=== PATIENT | female | born 1985 | race Caucasian/White ===

== ENCOUNTER → 2021-09-03 | Outpatient (CLI) | payer MEDICAID, SELFPAY | END | disposition home or self-care (01) | LOC: SL 21:55 | PROVIDERS: PCP Nurse Practitioner Family; Visit Provider Nurse Practitioner Family | DX: G47.10 Hypersomnia, unspecified (principal) | CPT/HCPCS: 95810 ==

== ENCOUNTER → 2023-03-24 | Outpatient (CLI) | payer MEDICAID, SELFPAY ==
--- NOTE | 2023-03-24 16:08 | RAD_ITS ---
STUDY: X-RAY - LUMBAR SPINE REASON FOR EXAM: Female, 37 years old. LOW BACK PAIN TECHNIQUE: 4 view(s) of the lumbar spine were obtained. COMPARISON: None FINDINGS: Normal lumbar lordosis. There is no substantial scoliosis. There is a normal alignment of the vertebrae. Normal vertebral bodies and endplates. Normal disc space heights. The soft tissue structures are unremarkable. RAD/L/S Spine Min 4 Views IMPRESSION: Normal x-ray examination of the lumbar spine. Electronically Signed: John Canales MD at 18:54 EST ,
[2023-03-24 17:44] LABS: Absolute Lymphocyte Count 2.01 X10^3/uL (0.83-4.51); Absolute Neutrophil Count 5.1 X10^3/uL (2.0-7.7); Basophil% 1.2 % (0-1); Eosinophil# 0.42 X10^3/uL; Eosinophils% 4.9 % (0-5); Hematocrit 41.4 % (37-47); Lymphocyte # 2.01 X10^3/ul (0.83-4.51); Lymphocyte % 23.3 % (19-41); Mean Corp Hgb Conc 31.4 g/dL (32-36); Mean Corpuscular Hgb 28.1 pg (27.0-32.0); Mean Corpuscular Volume 89.4 fL (81-99); Mean Platelet Vol. 11.3 fl (6.2-12.0); Monocyte# 0.93 X10^3/uL; Monocyte% 10.8 % (0-10); NRBC Flagged by Analyzer 0 % (0-5); Neutrophil # 5.14 X10^3/uL (2.7-7.7); Neutrophil % 59.5 % (47-70); Platelet Count 280 K/mm3 (150-450); RBC Distribution Width CV 15.1 % (11.6-14.6); RBC Distribution Width SD 49.3 fl (35.1-43.9); Red Blood Count 4.63 M/mm3 (4.2-5.4); White Blood Count 8.6 K/mm3 (4.4-11.0)
[2023-03-24 18:15] LABS: Hemoglobin A1c 5.2 % (3.8-5.6)
[2023-03-24 18:19] LABS: ALB/GLOB Ratio 0.8 RATIO (0.9-2.4); AST(SGOT) 31 U/L (15-37); Alanine Aminotransfer ALT/SGPT 43 U/L (13-56); Albumin, Serum 3.4 g/dL (3.2-5.0); Alkaline Phosphatase 52 U/L (45-117); Anion Gap 5 (5-15); BUN 7 mg/dL (7-18); BUN/Creat Ratio 8.3 RATIO (10-20); Calcium,Total 9.5 mg/dL (8.5-10.1); Chloride 106 mmol/L (98-107); Cholesterol 226 mg/dL (200); Creatinine, Serum 0.84 mg/dL (0.55-1.02); EST Glomerular Filtration Rate 81 mL/min (>60); Est Glom Filt Rate - Afr Amer 98 mL/min (>60); Globulin 4.4 g/dL (2.2-4.2); Glucose 93 mg/dL (74-106); High Density Lipoprotein 77 mg/dL; Potassium 4.5 mmol/L (3.5-5.1); Protein, Total 7.8 g/dL (6.4-8.2); Sodium Level 139 mmol/L (136-145); Triglycerides 89 mg/dL; Very Low Density Lipoprotein 18 mg/dL (5-40)
[2023-03-24 18:34] LABS: Microalbumin,Random Urine 21.5 mg/L (NO RANGE EST.); Microalbumin:Creatinine Ratio 5.7 mg/g CRE (<30 mg/g CRE)
== END | disposition home or self-care (01) ==
LOC: MTLAB 16:06
PROVIDERS: PCP Family Medicine; Referring Provider Family Medicine; Visit Provider Family Medicine
DX: I10 Essential (primary) hypertension (principal); M54.50 Low back pain, unspecified; F41.8 Other specified anxiety disorders
CPT/HCPCS: 36415; 72110; 80053; 80061; 82043; 82570; 83036; 85025

== ENCOUNTER → 2024-02-02 | Outpatient (CLI) | payer MEDICAID, SELFPAY ==
--- OUTSIDE RECORDS SUMMARY | 2024-02-02 19:51 | XMS RPT_ITS | CCD ---
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 Name Role Phone ELISEO FOX APRN, CNP Primary Care Phys ician Eliseo Lopez CNP Primary Care Provider 1( [phone] TREY HENDERSON DO Primary Care UnavailCLARE Mcallister Attending Felecia vailaCLARE Montemayor Attending Felecia vailable TREY HENDERSON DO Primary Care UnavailTREY Lang DO Primary Care Physician Eliseo Lopez CNP Primary Care Provider ELISEO LOPEZ Primary Care Unavailable ELOISA RODRIGUEZ Attending Unavailable Allergies Allergy Classification Reported Allergen(s) Allergy Type Date of Onset Reaction(s) Facility Doxycycline (1 source) Doxycycline; Translations: [DOXYCYCLINE] Drug Allergy 2 [facility] Latex (1 source) Latex; Translations: [LATEX] Substance Allergy 6 [facility] Penicillins (antibiotic) (1 source) Penicillins; Translations: [PENICILLINS] Drug Allergy 6 [facility] (4 sources) Bee/Wasp/Ant venom Allergy to substance Anaphylaxis (disorder) [facility] (8 sources) Doxycycline; Translations: [doxycycline] Drug Allergy 2 Diarrhea (finding), Stomach ache (finding), GI Upset [facility] (8 sources) Latex Allergy to substance 6 Weal (disorder), Rash [facility] (4 sources) Penicillin; Translations: [penicillin] Drug Allergy Eruption of skin (disorder) [facility] (3 sources) Penicillins Drug Allergy 6 Rash, Hives [facility] (5 sources) Bee Sting; Translations: [BEE STING] Propensity to adverse reactions 6 Anaphylaxis [facility] (5 sources) Wasps; Translations: [WASPS] Propensity to adverse reactions 6 Anaphylaxis [facility] (1 source) Penicillins Drug Allergy 6 [facility] Medications Current Medications Medication Drug Class(es) Dates Sig (Normalized) Sig (Original) acetaminophen 325 mg / oxyCODONE hydrochloride 5 mg oral tablet (2 sources) Opioid Agonist Start: 07-23-2021 take 1 tablet by mouth every six hours as needed for pain acetaminophen-oxy CODONE 325 mg-5 mg oral tablet Dose = 1 tab(s), Oral, q6h, PRN for pain, # 12 tab(s), 0 Refill(s), 144.3 Start Date: 07/23/21 Status: Ordered Start: 07-15-2021 End: 07-20-2021 take 1 tablet by mouth every six hours as needed for pain oxyCODONE-acetaminophen (PERCOCET) 5-325 mg tablet Indications: Anal fistula Take 1 tablet by mouth every 6 hours as needed for pain for up to 5 days. FOR PAIN. 12 tablet 0 07/15/2021 07/20/2021 Active Comment on above: Take 1 tablet by nolberto every 6 hours as needed for pain for up to 5 days. FOR PAIN. ALPRAZolam 0.5 mg oral tablet (3 sources) Benzodiazepine Start: 06-26-19 take 1 tablet by mouth every eight hours as needed ALPRAZolam (XANAX) 0.5 mg tablet Take 0.5 mg by mouth three times daily as needed. 0 06/25/2021 Active Comment on above: Take 0.5 mg by mouth three times daily as needed. ARIPiprazole 5 mg oral tablet (6 sources) Atypical Antipsychotic Start: 05-27-19 End: 02-19-20 take 1 tablet by mouth once daily ARIPiprazole (ABILIFY) 5 mg tablet Take 5 mg by mouth once daily. 0 05/27/2021 Active Start: 05-10-2021 ARIPiprazole 5 mg oral tablet Dose : 5 mg = 1 tab(s), Oral, qDay, # 90 tab(s), 0 Refill(s) Start Date: 05/10/21 Status: Ordered Comment on above: Take 5 mg by mouth o nce daily. atenolol 50 mg oral tablet (8 sources) beta-Adrenergic Divine Start: 02-03-2023 atenolol 50 mg oral tablet Dose : 50 mg = 1 tab(s), Oral, BID, # 60 tab(s), 5 Refill(s), [id number], Supraventricular tachycardia, 172.5, cm, 02/03/23 15:34:00 EDT, Height, kg, 02/03/23 15:34:00 EDT, Dosing Weight Start Date: 02/03/23 Status: Ordered Start: 10-21-2016 End: 03-22-2022 atenolol 50 mg oral tablet D ose : 50 mg = 1 tab(s), Oral, qDay, # 90 tab(s), 2 Refill(s), [id number], Supraventricular tachycardia, 173, cm, 06/25/21 14:05:00 EDT, Height, kg, 06/25/21 14:05:00 EDT, Dosing Weight Start Date: 06/25/21 Stop Date: 03/22/22 Status: Ordered Comment on above: Take 1 tablet by nolberto as needed. brexpiprazole 1 mg oral tablet (2 sources) Atypical Antipsychotic Start: 05-04-2023 Rexulti 1 mg oral tablet Dose : 1 mg = 1 tab(s), Oral, qDay, # 30 tab(s), 0 Refill(s) Start Date: 05/04/23 Status: Ordered Dibucaine (3 sources) Standardized Chemical Allergen Start: 07-23-2021 Dibucaine 1% topical ointment 0 Refill(s), 144.3 Start Date: 07/23/21 Status: Ordered Start: 07-15-2021 End: 07-30-2021 dibucaine (NUPERCAINAL) 1 % ointment Apply to affected area as needed (to external area, as needed) for up to 15 days. 56 g 2 07/15/2021 07/30/2021 Comment on above: Apply to affected ar ea as needed (to external area, as needed) for up to 15 days. escitalopram 10 mg oral tablet (2 sources) Serotonin Reuptake Inhibitor Start: 2023 escitalopram 10 mg oral tablet Dose : 10 mg = 1 tab(s), Oral, qDay, # 30 tab(s), 0 Refill(s) Start Date: 05/04/23 Status: Ordered hydroCHLOROthiazide 12.5 mg oral capsule (1 source) Thiazide Diuretic Start: 2021 hydroCHLOROthiazide 12.5 mg oral capsule Dose : 12.5 mg = 1 cap(s), Oral, qDay, # 30 cap(s), 1 Refill(s), [facility], HTN (hypertension), 173, cm, 07/23/21 13:56:00 EDT, Height Start Date: 07/23/21 Status: Ordered Hydrocortisone / Lidocaine (1 source) Antiarrhythmic, Corticosteroid, Amide Local Anesthetic Start: 2021 End: 2021 apply 1 dose rectal route twice daily hydrocortisone-lidocaine 0.5%-3% rectal cream Dose = 1 karyn, Rectal, BID, X 7 day(s), # 28.3 gram(s), 0 Refill(s), [facility]: [facility], Hemorrhoids without complication, 175, cm, 05/10/21 13:49:00 EST, Height, kg, 05/10/21 13:49:00 EST, Dosing Weight Start Date: 05/10/21 Stop Date: 05/17/21 Status: Ordered sertraline 100 mg oral tablet (6 sources) Serotonin Reuptake Inhibitor Start: 2021 sertraline 100 mg oral tablet Dose : 100 mg = 1 tab(s), Oral, qDay, # 30 tab(s), 5 Refill(s), [facility]: [facility], 173, cm, 07/23/21 13:56:00 EDT, Height Start Date: 08/06/21 Status: Ordered Start: 05-10-2021 sertraline 100 mg oral tablet Dose : 100 mg = 1 tab(s), Oral, qDay, # 90 tab(s), 0 Refill(s) Start Date: 05/10/21 Status: Ordered Start: 06-16-2016 take 1.5 tablets by mouth once daily sertraline (ZOLOFT) 100 mg tablet Indications: Anxiety about health Take 1.5 tablets by mouth once daily. 45 tablet 6 06/16/2016 Active Comment on above: Take 1.5 tablets by mouth once daily. valsartan 160 mg oral tablet (6 sources) Angiotensin 2 Receptor Divine Start: 02-03-2023 Diovan 160 mg oral tablet Dose : 160 mg = 1 tab(s), Oral, qDay, # 30 tab(s), 5 Refill(s), [facility]: [id number], 172.5, cm, 02/03/23 15:34:00 EDT, Height, kg, 02/03/23 15:34:00 EDT, Dosing Weight Start Date: 02/03/23 Status: Ordered Start: 07-02-2021 End: 08-31-2021 Diovan 80 mg oral tablet Dos e : 80 mg = 1 tab(s), Oral, qDay, # 30 tab(s), 1 Refill(s), [facility]: [facility], HTN (hypertension), 173, cm, 07/02/21 11:06:00 EDT, Height, kg, 07/02/21 11:06:00 EDT, Dosing Weight Start Date: 07/02/21 Stop Date: 08/31/21 Status: Ordered Comment on above: Take 80 mg by mouth once daily. Completed/Discontinued Medications Medication Drug Class(es) Dates Sig (Normalized) Sig (Original) chlorhexidine gluconate 20 mg/ml topical solution (1 source) Start: 07-02-2021 End: 07-12-2021 apply 1 dose topically once daily chlorhexidine 2% topical liquid Dose = 1 karyn, Topical, Daily, # 120 mL, 1 Refill(s), Pharmacy: [facility], Anal fissure, 173, cm, 07/02/21 11:06:00 EDT, Height, kg, 07/02/21 11:06:00 EDT, Dosing Weight Start Date: 07/02/21 Stop Date: 07/12/21 Status: Ordered [id number] 0.3 ml EPINEPHrine 1 mg/ml auto-injector (6 sources) alpha-Adrenergic Agonist, beta-Adrenergic Agonist, Catecholamine Start: 01-14-2022 EpiPen 2-[place] 0.3 mg injectable kit Dose : 0.3 mg =, Intramuscular, AsDirected, PRN Allergic reaction, # 1 kit(s), 1 Refill(s), Pharmacy: [email or web address] #[id number], 173, cm, 01/14/22 9:45:00 EDT, Height Start Date: 01/14/22 Status: Ordered Start: 10-21-2016 EPINEPHrine (E PIPEN) 0.3 mg/0.3 mL auto-injector Inject 0.3 mL intramuscularly as directed. 1 Each 3 10/21/2016 Active Comment on above: Inject 0.3 mL intram uscularly as directed. Problems Active Problems Problem Classification Problem Date Documented Date Episodic/Chronic Alcohol-related disorders (2 sources) Alcohol abuse 12-23-2022 Chronic Anal and rectal conditions (2 sources) Anal fistula; Translations: [Anal fistula] Episodic Anxiety disorders (12 sources) Anxiety; Translations: [Anxiety disorder, unspecified] Onset: 03-26-2016 08-07-2020 Chronic Cardiac dysrhythmias (8 sources) Supraventricular tachycardia; Translations: [Supraventricular tachycardia] Onset: 05-15-2016 01-07-2019 Chronic Congestive heart failure; nonhypertensive (2 sources) Diastolic dysfunction 12-23-2022 Chronic Comment on above: (09/10/2021 21:53 ED T MRI Cardiac Morphology & Func W+W/O Cont) Impression: 1. Normal biventricular systolic function. LVEF calculated at 57%. RVEF calculated at 61%. Both ventricles are dilated/increased (but normal when indexed to BSA). 2. No edema or scar seen. 3. No significant valve disease. 4. Biatrial dilation (normal PA size). Echo Summary: 2021 1. Left ventricle: The cavity size is normal. Wall thickness is mildly increased. Systolic function is mildly reduced. The estimated ejection fraction is 45%. Regional wall motion abnormalities cannot be excluded. Grade I diastolic dysfunction. 2. Ventricular septum: Thickness is mildly increased. 3. Left atrium: The atrium is mildly dilated. 4. Right ventricle: The cavity size is mildly increased. The RV systolic pressure by Doppler is 21 mm Hg. 5. Right atrium: The atrium is moderately dilated. Essential hypertension (7 sources) Hypertensive disorder; Translations: [Essential (primary) hypertension] Onset: 07-05-2021 07-05-2021 Chronic Menstrual disorders (4 sources) Disorder of menstruation 12-04-2020 Chronic Mood disorders (4 sources) Depressive disorder; Translations: [Depression] Onset: 07-05-2021 07-05-2021 Chronic Nonmalignant breast conditions (4 sources) Fibrocystic disease of breast 08-07-2020 Chronic Other nutritional; endocrine; and metabolic disorders (4 sources) Morbid obesity; Translations: [Morbid (severe) obesity due to excess calories] Onset: 07-05-2021 07-05-2021 Chronic Other screening for suspected conditions (not mental disorders or infectious disease) (2 sources) Echocardiogram abnormal 08-09-2021 Episodic Comment on above: Echo Summary: 2021 1. Left ventricle: The cavity size is normal. Wall thickness is mildly increased. Systolic function is mildly reduced. The estimated ejection fraction is 45%. Regional wall motion abnormalities cannot be excluded. Grade I diastolic dysfunction. 2. Ventricular septum: Thickness is mildly increased. 3. Left atrium: The atrium is mildly dilated. 4. Right ventricle: The cavity size is mildly increased. The RV systolic pressure by Doppler is 21 mm Hg. 5. Right atrium: The atrium is moderately dilated. Echo Summary: 2018 1. Left ventricle: The cavity size is normal. Wall thickness is normal. Systolic function is normal. The estimated ejection fraction is 55-60%. Although no diagnostic regional wall motion abnormality is identified, this possibility cannot be completely excluded on the basis of this study. Normal diastolic function. 2. Right ventricle: The RV systolic pressure by Doppler is 27 mm Hg. 3. Right atrium: The estimated right atrial pressure is 10 mm Hg. Kiesha-; endo-; and myocarditis; cardiomyopathy (except that caused by tuberculosis or sexually transmitted disease) (2 sources) Cardiomyopathy 04-25-2022 Chronic Comment on above: 08/06/2021 Echo Summ laura: 1. Left ventricle: The cavity size is normal. Wall thickness is mildly increased. Systolic function is mildly reduced. The estimated ejection fraction is 45%. Regional wall motion abnormalities cannot be excluded. Grade I diastolic dysfunction. 2. Ventricular septum: Thickness is mildly increased. 3. Left atrium: The atrium is mildly dilated. 4. Right ventricle: The cavity size is mildly increased. The RV systolic pressure by Doppler is 21 mm Hg. 5. Right atrium: The atrium is moderately dilated. Poisoning by nonmedicinal substances (2 sources) Bee sting-induced anaphylaxis 01-14-2022 Episodic Residual codes; unclassified (3 sources) Obstructive sleep apnea syndrome; Translations: [Obstructive sleep apnea (adult) (pediatric)] 04-17-2022 Chronic Comment on above: 04/11/2022 Sleep Marshal dy: IMPRESSION: 1. Moderate respiratory events are mainly REM related without supine REM. 2. All stages of sleep were recorded with a decrease in SWS and REM. 3. Snoring was moderate to loud causing some arousals. 4. PLMS with an arousal index of 1.2. 5. Sats below 90% for part of the night and a low of 83% with REM events. Residual codes; unclassified (1 source) Obstructive sleep apnea (adult) (pediatric); Translations: [YANELI (obstructive sleep apnea)] Onset: 09-01-2023 Chronic Residual codes; unclassified (4 sources) Family history of breast cancer 11-15-2019 Episodic Residual codes; unclassified (4 sources) Increased body mass index 08-07-2020 Episodic Spondylosis; intervertebral disc disorders; other back problems (2 sources) Backache 02-03-2023 Episodic Unclassified (20 sources) Patient encounter status 11-15-2019 Past or Other Problems Problem Classification Problem Date Documented Da te Episodic/Chronic Cancer of cervix (4 sources) History of malignant neoplasm of cervix; Translations: [Personal history of malignant neoplasm of cervix uteri] Onset: 07-05-2021 07-05-2021 Episodic Other skin disorders (4 sources) Hidradenitis suppurativa; Translations: [Hidradenitis suppurativa] Onset: 07-05-2021 07-05-2021 Episodic Results Test Name Value Interpretation Reference Range Facil ity ANES POSTPROC EVALon 022 ANES POSTPROC EVAL HNO ID: [id number] Author: Joaquin Degroot MD Service: Anesthesiology Author Type: Physician Type: Anesthesia Postprocedure Evaluation Filed: 07/15/2021 3:10 PM Note Text: POST ANESTHESIA EVALUATION NOTE : 1985 Procedure Summary Date: 07/15/21 Room / Location: NE OR05 / NE OR Anesthesia Start: 1334 Anesthesia Stop: 1416 Procedures: ANAL FISTULECTOMY EXTRASPHINCTERIC W/ SETON DRAIN (N/A Anus) EXAM UNDER ANESTHESIA RECTAL (N/A Anus) Diagnosis: Anal fistula Surgeons: Eliseo Morales MD Responsible Provider: Joaquin Degroot MD Anesthesia Type: MAC ASA Status: 3 Anesthesia Type: MAC Last Vitals Vitals Value Taken Time BP 149/68 07/15/21 1500 Temp 36 ?C (96.8 ?F) 07/15/21 1415 Pulse 83 07/15/21 1500 Resp 16 07/15/21 1500 SpO2 98 % 07/15/21 1500 Post Anesthesia Patient Status Patient Evaluation: PACU. PACU/ICU Patient Condition: stable. Anticipated Disposition: phase 2 then home. Neurological Status: aware and responsive. Pulmonary Status: breathing comfortably on room air Airway Control: returned to baseline unsupported. Cardiovascular Status: stable. Pain Management: clinically adequate - multimodal analgesia pain management approach Postoperative Hydration: acceptable. Intraoperative Events: no significant anesthesia events Recommendation: continue current plan of care. Anesthesia Observations No Documentation SIGNATURE: Joaquin Degroot MD PATIENT NAME: Jaime Desai DATE: July 15, 2021 TIME: 3:09 PM CSN: [id number] [facility] ANES PRE-OPon 07-15-2021 ANES PRE-OP HNO ID: [id number] Author: Joaquin Degroot MD Service: Anesthesiology Author Type: Physician Type: Anesthesia Preprocedure Evaluation Filed: 07/15/2021 1:02 PM Note Text: ANESTHESIOLOGY DAY OF SURGERY NOTE : 1985 Procedure Information Date/Time: 07/15/21 1318 Procedures: ANAL FISTULECTOMY EXTRASPHINCTERIC W/ SETON DRAIN (N/A ) EXAM UNDER ANESTHESIA RECTAL (N/A Anus) Location: [place] [address] / [place] OR Surgeons: Eliseo Morales MD Estimated body mass index is 48.2 kg/m? as calculated from the following: Height as of 07/05/21: 172.7 cm (5' 8 ). Weight as of 07/05/21: 143.8 kg (317 lb). Most recent hematocrit and potassium results: Hematocrit 39.1 01/10/2014 Potassium 4.0 01/10/2014 Relevant Problems CARDIO (+) Hypertension (+) Supraventricular tachycardia (HCC) NEURO-PSYCH (+) History of malignant neoplasm of cervix I - PHYSICAL EVALUATION AIRWAY Patient intubated: No. Tracheostomy tube not present Mallampati: II. TM distance: >3 FB. Neck ROM: full ROM without neurological symptoms. Mouth opening: adequate. Short neck: no. Thick neck: no DENTAL Normal dental observations. Dental findings: teeth intact. Additional exam findings: no II - ANESTHESIA PLAN ASA Score: 3 Anesthetic Plan: MAC NPO Status: adequate Monitoring plan: Standard ASA. Postoperative analgesic plan: parenteral or oral opioids and multimodal analgesia. Informed Consent Anesthetic risks, benefits, alternatives, personnel and consent discussed: yes. Patient / Responsible Constitution Party agrees to proceed: yes Patient / Surrogate agrees to blood products: blood products not planned DNR status not reviewed with patient and/or family prior to surgery. Significant changes in the patient condition since the History and Physical, not otherwise documented in primary service progress note: no. Potential Anesthesia issues that may suggest increased risk of complications or contraindication to planned procedure: none. Vitals Value Taken Time BP 172/92 07/15/21 1208 Pulse Resp 16 07/15/21 1208 Temp 36.8 ?C (98.2 ?F) 07/15/21 1208 SpO2 99 % 07/15/21 1208 Facility-Administered Medications as of 07/15/2021 Medication Dose Route Frequency - lactated ringers iv infusion 5-30 mL/hr INTRAVENOUS CONTINUOUS - clindamycin iv piggyback 900 mg in D5W 50 mL (CLEOCIN) 900 mg INTRAVENOUS Pre-Op Once - [COMPLETED] acetaminophen 650 mg tab(s) (TYLENOL) 650 mg ORAL Pre-Op Once - [COMPLETED] promethazine 12.5 mg tab(s) (PHENERGAN) 12.5 mg ORAL Pre-Op Once - scopolamine 1 mg over 3 days 1 Patch (TRANSDERM-SCOP) 1 Patch TRANSDERMAL ONCE Outpatient Medications as of 07/15/2021 Medication Sig - ARIPiprazole (ABILIFY) 5 mg tablet Take 5 mg by mouth once daily. - atenolol (TENORMIN) 50 mg tablet Take 1 tablet by mouth as needed. - sertraline (ZOLOFT) 100 mg tablet Take 1.5 tablets by mouth once daily. - EPINEPHrine (EPIPEN) 0.3 mg/0.3 mL auto-injector Inject 0.3 mL intramuscularly as directed. I have interviewed and examined the patient. I have reviewed the medical record and/or the pre-anesthesia evaluation, pertinent labs, and test results. This contains updated information obtained within 48 hours of Surgery/Procedure. SIGNATURE: Joaquin Degroot MD PATIENT NAME: Jaime Desai DATE: July 15, 2021 TIME: 1:01 PM CSN: [id number] [facility] BRIEF OP NOTon 07-15-2021 BRIEF OP NOT HNO ID: [id number] Author: Eliseo Morales MD Service: General Surgery Author Type: Physician Type: Brief Op Note Filed: 07/15/2021 2:14 PM Note Text: BRIEF OPERATIVE NOTATION FOR SURGICAL PROCEDURE. Jaime Desai 1985 [id number] female LOG ID: [id number] Surgery/Procedure Date: 07/15/2021 Incision/Procedure Start Time: 1:51 PM Incision Close/Procedure End Time: 2:04 PM Surgeon(s)/Proceduralis t(s) and Bulk Sealer Operator(s): Surgeon(s) and Role: * Eliseo Morales MD - Primary Registered Nurse Highway Technician: Agnieszka Miller RN REFERRING PHYSICIAN: Outpatient DEPT: W[facility] PROVIDER: Cj POS: [id number] ANESTHESIA: Monitored Anesthesia Care ASA CLASS: 3 - Severe DIAGNOSIS: posterior anal fistula PROCEDURE: Examination Under Anesthesia, Anal Fistula - [id number] IVF: 600 EBL: 25 Specimens: fistula tract ADDITIONAL DIAGNOSES: FINDINGS: posterior fistula COMPLICATIONS: None PMHx - PAST MEDICAL HISTORY Diagnosis Date - Anxiety - Atopic dermatitis - Depression - Generalized anxiety disorder with panic attacks - Hemorrhoids - Hidradenitis suppurativa - History of malignant neoplasm of cervix 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 - [id number] Eliseo Morales MD [facility] HISTORY PHYSICALon HISTORY PHYSICAL HNO ID: [id number] Author: Eliseo Morales MD Service: General Surgery Author Type: Physician Type: HANDP Filed: 07/15/2021 1:10 PM Note Text: HISTORY AND PHYSICAL ? Jaime Ordonezigler 1985 ? ? REFERRING PHYSICIAN: Self ? CHIEF COMPLAINT: Consult (hemorrhoid) ? HPI: The patient is a 35 year old female with a complaint of a painful area in her perianal area. ? The patient has a history of hidradenitis under her breasts and axilla. Initially she wondered if this was perianal hidradenitis. She does however note that the area tends to fill up and occasionally drain with blood and pus and she notes that it is painful when it is full. She notes this started approximately 2 months previously. Between times when she notes pus draining from the area she will otherwise notes some clear yellow to greenish liquid draining. ? The patient was referred to dermatology. Dermatology prescribed doxycycline but told her not to take that medication until she was evaluated by me.. ? The patient is being seen by me at the request of JARRED HermanP, LINSEED CAKE TRIMMER for my opinion and advice regarding perianal drainage. ? She was seen in the office in May but wanted to come back just that she has some degrees of anxiety about the planned procedure and just to rediscuss the findings the planned procedure and the expected postoperative course. ? PAST MEDICAL HISTORY PAST MEDICAL HISTORY Diagnosis Date - Anxiety ? - Atopic dermatitis ? - Depression ? - Generalized anxiety disorder ? ? with panic attacks - Hemorrhoids ? - Hidradenitis suppurativa ? - History of malignant neoplasm of cervix ? ? 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 - Low back pain ? - Morbid obesity (HCC) ? ? BMI 44 - Narcotic drug use ? - Paresthesia ? - Paroxysmal supraventricular tachycardia (HCC) ? ? Episodes typically every 3 mos; face in cold water - Supraventricular tachycardia (HCC) ? - Tobacco dependence syndrome ? ? ? PAST SURGICAL HISTORY PAST SURGICAL HISTORY Procedure Laterality Date - SECTION HX ? ? ? x2 - CONIZATION OF CERVIX, LEEP ? ? ? x2; 2009; 11/2011; Dr. Alonso - TUBAL LIGATION HX ? 2012 ? ? CURRENT MEDICATIONS Current Outpatient Medications Medication Sig - ALPRAZolam (XANAX) 0.5 mg tablet Take 0.5 mg by mouth three times daily as needed. - ARIPiprazole (ABILIFY) 5 mg tablet Take 5 mg by mouth once daily. - EPINEPHrine (EPIPEN) 0.3 mg/0.3 mL auto-injector Inject 0.3 mL intramuscularly as directed. - atenolol (TENORMIN) 50 mg tablet Take 1 tablet by mouth as needed. - sertraline (ZOLOFT) 100 mg tablet Take 1.5 tablets by mouth once daily. ? No current facility-administered medications for this visit. ? ? ALLERGIES: Bee Sting, Wasps, Doxycycline, Latex, and Penicillins ? PERSONAL HISTORY: SOCIAL HISTORY Social History ? Tobacco Use - Smoking status: Former Smoker ? ? Types: Cigarettes ? ? Quit date: 07/18/2016 ? ? Years since quittin.9 - Smokeless tobacco: Never Used - Tobacco comment: Quit 07/2016 Vaping Use - Vaping Use: current everyday user Substance Use Topics - Alcohol use: Yes ? ? Comment: occasionally - Drug use: No ? FAMILY HISTORY: FAMILY HISTORY FAMILY HISTORY Problem Relation Age of Onset - Breast Cancer Maternal Grandmother ? - Ovarian cancer Maternal Grandmother ? - other (Heart Disease) Maternal Grandmother ? ? ? REVIEW OF SYMPTOMS: The review of systems data was entered by the nurse and reviewed by me ? There are no exam notes on file for this visit. PHYSICAL EXAMINATION: ? General: The patient is 35 year old female, well nourished, well hydrated in no acute distress. The patient is oriented to time, place, and person. ? VITALS: Blood pressure 130/92, pulse 75, temperature 36.8 ?C (98.2 ?F), height 172.7 cm (5' 8 ), weight (!) 142.1 kg (313 lb 3.2 oz), last menstrual period 09/07/2016, SpO2 97 %. ? HEENT: Normal cephalic, ataumatic, pupils are equally round, sclera are anicteric, mucous membranes are moist, oropharynx is clear. Neck has no masses, asymmetry or lymphadenopathy. Thyroid is unremarkable. ? Respiratory: Clear to auscultation and percussion. Normal respiratory excursion and pattern. ? Cardiac: Examination is regular rate and rhythm. ? Abdominal exam: Soft, nontender, with no palpable masses. No hepatosplenomegaly. No palpable hernias. ? Rectal exam: Posterior midline-an external sinus consistent with a posterior midline anal fistula along with a chronically inflamed tag just proximal to the sinus. Digital rectal exam reveals no hemorrhoids or other abnormalities there is what it feels to be a tract in the posterior midline consistent with fistula. She has no active perianal hidradenitis. ? Extremities: no clubbing, cyanosis or edema. No adenopathy. ? Other: ? ? LABORATORY VALUES: As Noted ? RADIOLOGIC STUDIES: As (more content not included)... [facility] OPERATIVE NOon 07-15-2021 OPERATIVE NO HNO ID: [id number] Author: Eliseo Morales MD Service: General Surgery Author Type: Physician Type: Operative Report Filed: 07/16/2021 6:26 AM Note Text: [facility] - Operative Report JAIME DESAI : 1985 AGE: 36. SEX: F PATIENT TYPE: A HOSP [facility]: [facility] LOCATION: [facility] ATTENDING PHYSICIAN: Eliseo Morales M.D. CSN NUMBER: [id number] DATE OF SURGERY/PROCEDURE: 07/15/2021 INCISION/PROCEDURE START TIME: Start time was 1:51 p.m. INCISION CLOSE/PROCEDURE END TIME: End time is 2:04 p.m. PREOPERATIVE DIAGNOSIS: Posterior anal fistula. POSTOPERATIVE DIAGNOSIS: Posterior anal fistula. SURGEON: Eliseo Morales M.D. JOURNEY LINEMAN: SURAJ Luu. SURGERY/PROCEDURE: Under anesthesia and anal fistulotomy. ANESTHESIA: Local MAC. LOG ID NUMBER: [id number]. ANESTHESIOLOGIST: Dr. Joaquin Degroot. ASA: 3. INTRAVENOUS FLUIDS: 600 mL. ESTIMATED BLOOD LOSS: 25 mL. URINE OUTPUT: No catheter. FINDINGS: As described above. SPECIMENS: Fistula tract. DRAINS: None. COMPLICATIONS: None. DISPOSITION: Patient taken to PACU in stable condition. DESCRIPTION OF PROCEDURE: Sign-in was performed, verifying the patient, site, procedure, position, critical nursing information, VTE, and antibiotic prophylaxis. Patient received clindamycin and sequential pressure devices were placed. Patient had extreme fear of general anesthesia, so we elected the procedure in modified lithotomy sedation and a local anesthetic block. So, the patient was positioned in modified lithotomy. The perineal area was prepped and draped in the fashion. Time- out was performed verifying patient, site, procedure, position. Once the patient was then given a decent bolus of sedation, a perianal block was performed using 1% lidocaine and 0.5% Marcaine circumferentially around the anus and along the posterior aspect of the fistula tract. Bidigital exam revealed internal hemorrhoids without other additional abnormalities. Anoscopy demonstrated what was felt to be the internal fistula orifice to be relatively superficial. The patient had an anal tag in the posterior midline following Goodsall's rule. Hydrogen peroxide was injected in the external opening, which flushed easily into the internal inguinal opening at the dentate line. A probe was placed. The fistula tract opened with minimal sphincter superficial to it. The tag was excised with electrocautery. Hemostasis was obtained with electrocautery. Following this, more of the local anesthetic mixture was injected in the perianal fistula tract. Dibucaine- impregnated Gelfoam was placed in the anal canal. The area was cleaned up. A dressing of 4 x 4's, ABD and ice peripad were placed and held in place with mesh pants. The patient was awakened, taken out of lithotomy and brought to recovery room in stable condition. Eliseo Morales M.D. RG:[id number] /[id number] [facility] SURGICAL PATHOLOGYon 022 CASE REPORT [facility] Comment on above: Order Comment: Speci men Type: TISSUE SPECIMEN Ordering Facility: [facility] Address: [address] [place] [id number] Result Comment: Surg [facility] Pathology Report Case: [id number] Authorizing Provider: Eliseo Morales MD Collected: 07/15/2021 01:59 PM Ordering Location: [facility] Surgery Received: 07/15/2021 03:53 PM Pathologist: Karen Reyes MD Specimen: FISTULA, Fistual Tract Performed By: #### S #### [facility] CLIA [id number] [address] [place] [address] FINAL DIAGNOSIS [facility] Comment on above: Order Comment: Speci men Type: TISSUE SPECIMEN Ordering Facility: [facility] Address: [address] [place] [address] Result Comment: A. A nal region, anal fistulotomy: - Squamous mucosa and submucosa with organizing inflammation consistent with the clinical history of fistula tract. AEB/mm 07/18/2021 Performed By: #### S #### [facility] CLIA [id number] [address] [place] [address] FINAL PERFORMING LAB [facility] Comment on above: Order Comment: Speci men Type: TISSUE SPECIMEN Ordering Facility: [facility] Address: [address] [place] [address] Result Comment: Diag nostic interpretation performed at [facility], [address] [place] [address] CLIA# [id number] Education Research Analyst: Kike Amin M.D. Performed By: #### S #### [facility] CLIA [id number] [address] [place] [address] GROSS DESCRIPTION A. FISTULA. [facility] Comment on above: Order Comment: Speci men Type: TISSUE SPECIMEN Ordering Facility: [facility] Address: [address] [place] [address] Result Comment: Rece ived in formalin labeled as fistula tract is a segment of kaur-lester mucosal covered rubbery tissue fragments measuring 1.7 x 1.1 x 0.8 cm. The specimen is serially sectioned and is entirely submitted in A1. TN/kr 07/16/2021 Gross examination performed at [facility], [address] [place] [address] CLIA# [id number] Performed By: #### S #### [facility] CLIA [id number] [address] [place], [place] [id number] [place] Vital Signs Date Time Vital Sign Value Performing Clinician Helen edmond 07-30-2021 16:38-0400 Body height 172.7 cm Eliseo Morales MD Work Phone: [facility] 07-30-2021 16:38-0400 Body temperature 97.7 [degF] Eliseo Morales MD Work Phone: [facility] 07-30-2021 16:38-0400 Body weight 145.15 kg Eliseo Morales MD Work Phone: [facility] 07-30-2021 16:38-0400 Diastolic blood pressure 90 mm[Hg] Eliseo Morales MD Work Phone: [facility] 07-30-2021 16:38-0400 Heart rate 82 /min Eliseo Morales MD Work Phone: [facility] 07-30-2021 16:38-0400 SaO2% (BldA) [Mass fraction] 98 % Eliseo Morales MD Work Phone: [facility] 07-30-2021 16:38-0400 Systolic blood pressure 152 mm[Hg] Eliseo Morales MD Work Phone: [facility] 07-15-2021 15:00-0400 Diastolic blood pressure 68 mm[Hg] Eliseo Morales MD Work Phone: [facility] 07-15-2021 15:00-0400 Heart rate 83 /min Eliseo Morales MD Work Phone: [facility] 07-15-2021 15:00-0400 Respiratory rate 16 /min Eliseo Morales MD Work Phone: [facility] 07-15-2021 15:00-0400 SaO2% (BldA) [Mass fraction] 98 % Eliseo Morales MD Work Phone: [facility] 07-15-2021 15:00-0400 Systolic blood pressure 149 mm[Hg] Eliseo Morales MD Work Phone: [facility] 07-15-2021 14:15-0400 Body temperature 96.8 [degF] Eliseo Morales MD Work Phone: [facility] Encounters Encounter Date Encounter Type Care Provider Facility Start: 09-01-2023 End: 09-02-2023 ambulatory Eloisa Rodriguez ACCOUNTS RECEIVABLE ANALYST.LINSEED CAKE TRIMMER Work Phone: Neurology Comment on above: YANELI (obstructive sle ep apnea) (Primary Dx) Start: 09-01-2023 End: 09-01-2023 Telemedicine consultation with patient Eloisa Rodriguez ACCOUNTS RECEIVABLE ANALYST.LINSEED CAKE TRIMMER Work Phone: Neurology Start: 05-11-2023 End: 05-11-2023 Patient encounter procedure CLARE HENRY ACCOUNTS RECEIVABLE ANALYST-CNM [facility] Start: 05-07-2023 ambulatory CLARE RIVERA PSOOdalys ACCOUNTS RECEIVABLE ANALYST-CNM Facility:B Start: 08-06-2021 End: 08-06-2021 Patient encounter procedure ELISEO LOPEZ ACCOUNTS RECEIVABLE ANALYST - LINSEED CAKE TRIMMER [facility] Start: 07-30-2021 End: 07-30-2021 Patient encounter procedure Eliseo Morales MD Work Phone: General Surgery Comment on above: Anal fistula (Primar y Dx) Start: 07-15-2021 End: 07-15-2021 Subsequent hospital visit by physician Eliseo Morales MD Work Phone: [facility] Comment on above: Anal fistula [K60.3] Start: 05-30-2021 Telephone encounter Eliseo Morales MD Work Phone: General Surgery Comment on above: 07-15-2021 EUA Fistu la Start: 05-13-2021 End: 05-13-2021 Patient encounter procedure ELISEO LOPEZ ACCOUNTS RECEIVABLE ANALYST - LINSEED CAKE TRIMMER [facility] Procedures Date Procedure Procedure Detail Performing Clinician Start: 07-15-2021 Anal fistula CLARE CHANG ACCOUNTS RECEIVABLE ANALYST-CNM Start: 04-13-2018 Breast ultrasound im aging system (physical object) ELISEO MAUROPKINS ACCOUNTS RECEIVABLE ANALYST - LINSEED CAKE TRIMMER Plan of Treatment Date Care Activity Detail Author Start: 01-29-2027 Urine microalbumin profile DTaP,Tdap,Td Vaccine (2 - Td or Tdap) [facility] Start: 12-13-2023 Influenza vaccination Influenz a Vaccine (Season Ended) [facility] Start: 12-12-2022 Covid-19 Vaccine ( season) Covid-19 Vaccine ( season) [facility] Start: 12-12-2021 Influenza vaccination INFLUENZ A (Season Ended) [facility] Start: 10-11-2020 PAP TESTING PAP TESTING [facility] Start: 10-11-2020 Screening for malign ant neoplasm of cervix Pap Testing [facility] Start: 11-12-2017 ANNUAL PCP TEAM QA ARCHITECT VIRGILIO DISEASE VISIT ANNUAL PCP TEAM CHRONIC DISEASE VISIT [facility] Start: 2016 HPV TESTING HPV TESTING [facility] Start: 2016 Screening for malign ant neoplasm of cervix HPV Testing [facility] Start: 2005 Hepatitis B Vaccine (1 of 3 - 19+ 3-dose series) Hepatitis B Vaccine (1 of 3 - 19+ 3-dose series) [facility] Start: 2005 Urine microalbumin profile DTAP,TDAP,TD (1 - Tdap) [facility] Start: 2004 Annual PCP Team State Editor virgilio Disease Visit Annual PCP Team Chronic Disease Visit [facility] Start: 2004 BP CONTROLLED (<130/80) BP CON TROLLED (<130/80) [facility] Start: 2004 HEPATITIS C SCREENING HEPATITIS C [facility] Start: 2004 Hepatitis C screening Hepatitis C [facility] Start: 2004 HIV SCREENING HIV SCREENING [facility] Start: 2004 HIV screening HIV Screening [facility] Start: 1991 COVID-19 VACCINE (1) COVID-19 VACCIN E (1) [facility] SURGICAL PATHOLOGY [facility] Work Phone: Comment on above: Release Upon Orderin g for 1 Occurrences starting 07/15/2021 ME OR Immunizations Immunization Date Immunization Notes Care Provider Kleber whyte 03-26-2016 influenza virus vacc ine, unspecified formulation Eloisa Rodriguez APRN.CNP Work Phone: [facility] Payers Date Payer Category Payer Medicaid [employer] [id number] 2022-Present [phone] [address] [place] [address] Medicaid [id number] 2022 Unknown [id number] 2015 Medicaid [facility] AID [employer] [id number] 2015-Present [phone] [address] [place] [address] Medicaid [id number] 1985 Unknown [id number] 1985 Unknown [id number] Social History Date Type Detail Facility Start: 10-21-2016 End: 10-25-2018 Ex-smoker (finding) [facility] Comment on above: No smoke exposure Sex Assigned At [facility] End: 07-18-2016 History of tobacco use Current smoker [facility] End: 07-18-2016 History of tobacco use Cigarette Smoker [facility] Start: 09-12-2016 End: 10-21-2016 Tobacco use and exposure Smokeless tobacco non-user [facility] Start: 05-30-2021 End: 07-30-2021 Alcohol intake Current drinker of alcohol (finding) [facility] Start: 03-26-2016 History SDOH Alcohol Comment occasionally [facility] Start: 10-21-2016 Tobacco Comment Quit 07/2016 [facility] Start: 1985 Sex Assigned At Not on file [facility] Start: 07-05-2021 End: 07-30-2021 Exposure to SARS-CoV-2 (event) Not sure [facility] Start: 07-05-2021 History SDOH Alcohol Comment a few glasses of wine a week [facility] Start: 12-23-2022 Tobacco smoking status [facility] tobacco [facility] Comment on above: No smoke exposure Start: 07-30-2021 End: 09-01-2023 History of Social function [facility] Start: 07-30-2021 End: 09-01-2023 Tobacco use panel [facility] National Score (1-100), lower number is lower risk 36 [facility] Clinical Notes 02-06-2021 to 09-01-2023 Eloisa Rodriguez APRN.CNP - 09/01/2023 1:00 PM Wing Morales MD - 07/30/2021 6:46 PM EDTDischarge Instr - Other OrdersBrief Op Note - Eliseo Morales MD - 07/15/2021 2:08 PM EDTLaboratory Note Date & Type Note Facility 09-01-2023 Note HNO ID: [id number] Author: ELOISA RODRIGUEZ APRN.CNP Service: ? Author Type: Nurse Practitioner Type: Progress Notes Filed: 09/01/2023 13:21 Note Text: [facility] Sleep Disorders Elizabeth New Patient Evaluation PATIENT NAME: Jaime Desai DATE OF SERVICE: September 01, 2023 No show Reschedule as new patient. Eloisa Rodriguez APRN.CNP [facility] 09-01-2023 History of Presen t illness Narrative [facility] Sleep Disorders Elizabeth New Patient Evaluation PATIENT NAME: Jaime Mckeoner DATE OF SERVICE: September 01, 2023 No show Reschedule as new patient. Eloisa Rodriguez APRN.CNP documented in this encounter [facility] 07-30-2021 History of Presen t illness Narrative FOLLOW UP VISIT - POST OP NAME: Jaime Becerra Gricelda [facility] NO.: [id number] DATE OF SERVICE: 07/30/2021 : 1985 REFERRING PHYSICIAN: AVERY Herman, JESSE Jaime is a patient I am following for posterior midline superficial fistula. The patient is a 35 year old female with a complaint of a painful area in her perianal area. The patient has a history of hidradenitis under her breasts and axilla. Initially she wondered if this was perianal hidradenitis. She does however note that the area tends to fill up and occasionally drain with blood and pus and she notes that it is painful when it is full. She notes this started approximately 2 months previously. Between times when she notes pus draining from the area she will otherwise notes some clear yellow to greenish liquid draining. The patient was referred to dermatology. Dermatology prescribed doxycycline but told her not to take that medication until she was evaluated by me.. The patient is being seen by me at the request of AVERY Herman, JESES for my opinion and advice regarding perianal drainage. She was seen in the office in May but wanted to come back just that she has some degrees of anxiety about the planned procedure and just to rediscuss the findings the planned procedure and the expected postoperative course. I performed an examination under anesthesia with superficial fistulotomy on July 15, 2021. Pathology returned as fistula track. The patient currently notes significant pain for the first few days but no pain currently. She denies fecal incontinence. She feels that she is healing well and is much happier than the discomfort she had preoperatively. her appetite has been good. she denies fever, chills or abdominal pain. she denies any current incisional discomfort. VITALS: Blood pressure 152/90, pulse 82, temperature 36.5 C (97.7 F), height 172.7 cm (5' 8 ), weight (!) 145.2 kg (320 lb), last menstrual period 09/07/2016, SpO2 98 %. On examination, the posterior midline fistula track is healing with a gap between the skin of approximately 6 mm. Granulation tissue is filled to the flush level and there were no signs of inflammation or irritation Assessment IMPRESSION: Status post posterior midline fistulotomy-doing well PLAN: If the patient notes any problems or signs of wound infections, she should contact me immediately. Diagnoses: (K60.3) Anal fistula (primary encounter diagnosis) Return to Clinic: The patient is instructed to follow-up with me in 1 month to assure complete healing.. Eliseo Morales MD documented in this encounter [facility] 07-15-2021 Hospital Discharg e instructions Eliseo Morales MD - 07/15/2021 2:20 PM EDT Images from the original note were not included. [facility] ANAL FISTULA POST OP INSTRUCTIONS The following instructions will help you know what to expect in the days following your procedure. Do not, however, hesitate to call if you have questions or concerns. Expectations :Pain is expected in varying degrees for up to 4 weeks postoperatively. :Bleeding will decrease over time. :You may notice a lump in the rectal area--this part of the healing process. :You may notice suture material on your toilet paper. Activity :Return to normal activity and heavy sports activities as tolerated. :There are no restrictions on lifting or driving unless you are taking narcotics. If you are taking narcotic medications, do not drive or lift heavy objects until you are off the medication for at least 24 hours. Pain Control :You will be given a prescription for pain medication upon discharge. If you are not allergic, you may substitute acetaminophen (Tylenol ), 2 tablets every 6 hours as needed, or ibuprofen (Advil ), 2 tablets as needed for pain. Wound Care :You may shower daily starting the day after surgery. :Do not insert anything into your rectum, including suppositories. Do apply topical ointment - Dibucaine to your external area. :Sitz baths are beneficial. (A stiz bath is a warm-water bath taken in the sitting position that covers only the hips and buttocks.) You may notice a small amount of bleeding afterwards. Special Instructions: Bowel function: :To keep the bowels soft, start Citrucel or Metamucil , 1 tablespoon daily, beginning on day one. :If you have constipation, use Milk of Magnesia , one ounce twice daily. Symptoms to be concerned about: :Difficulty urinating; if this occurs, call your doctor or go to your local emergency room. :Elevated temperature--101 degrees or higher. :Spreading area of redness around the wound. :Pain that is not relieved with the pain medication :Increase in the amount of bleeding/drainage or the presence of clots. Do not hesitate to call if you have any questions or concerns Again, if you have any difficulties or concerns between normal business hours contact our office immediately Department of General Surgery [address] [address] [facility]/[address] [place], [place] [address] After hours call [phone] and ask for general surgeon commonwealth attorney Eliseo Morales M.D. documented in this encounter [facility] 07-15-2021 Miscellaneous Notes BRIEF OPERATIVE NOTATION FOR SURGICAL PROCEDURE. Jaime Becerra Gricelda 1985 [id number] female LOG ID: [id number] Surgery/Procedure Date: 07/15/2021 Incision/Procedure Start Time: 1:51 PM Incision Close/Procedure End Time: 2:04 PM Surgeon(s)/Proceduralist(s) and Bulk Sealer Operator(s): Surgeon(s) and Role: * Eliseo Morales MD - Primary Registered Nurse Highway Technician: Agnieszka Miller RN REFERRING PHYSICIAN: Outpatient DEPT: BERNIE PROVIDER: Cj POS: [id number] ANESTHESIA: Monitored Anesthesia Care ASA CLASS: 3 - Severe DIAGNOSIS: posterior anal fistula PROCEDURE: Examination Under Anesthesia, Anal Fistula - [id number] IVF: 600 EBL: 25 Specimens: fistula tract ADDITIONAL DIAGNOSES: FINDINGS: posterior fistula COMPLICATIONS: None PMHx - PAST MEDICAL HISTORY Diagnosis Date Anxiety Atopic dermatitis Depression Generalized anxiety disorder with panic attacks Hemorrhoids Hidradenitis suppurativa History of malignant neoplasm of cervix Dr. Alonso supply chain logistics manager Hypertension Itching Low back pain Morbid obesity (HCC) BMI 44 Narcotic drug use Paresthesia Paroxysmal supraventricular tachycardia (HCC) Episodes typically every 3 mos; face in cold water Supraventricular tachycardia (HCC) Tobacco dependence syndrome COMORBIDITIES - Obesity Post Op Occurrences - None Wound Classification - Contaminated Operative note dictated in the dictation system. - [id number] Eliseo Morales MD documented in this encounter [facility] 07-15-2021 History and physical note UPDATED HISTORY AND PHYSICAL EXAMINATION SERVICE DATE: 07/15/2021 SERVICE TIME: 1:16 PM PHYSICAL EXAM MUST BE COMPLETED ON ADMISSION The History and Physical (completed in the past 30 days) has been reviewed and the patient has been examined. The contents accurately reflect the patient's condition with the following additions or revisions since the H&P was completed. Examination indicates no changes. This H&P can be found in the attached. SIGNATURE: Eliseo Morales MD PATIENT NAME: Jaime Desai DATE: July 15, 2021 TIME: 1:16 PM Images from the original note were not included. HISTORY AND PHYSICAL Jaime Desai 1985 REFERRING PHYSICIAN: Self CHIEF COMPLAINT: Consult (hemorrhoid) HPI: The patient is a 35 year old female with a complaint of a painful area in her perianal area. The patient has a history of hidradenitis under her breasts and axilla. Initially she wondered if this was perianal hidradenitis. She does however note that the area tends to fill up and occasionally drain with blood and pus and she notes that it is painful when it is full. She notes this started approximately 2 months previously. Between times when she notes pus draining from the area she will otherwise notes some clear yellow to greenish liquid draining. The patient was referred to dermatology. Dermatology prescribed doxycycline but told her not to take that medication until she was evaluated by me.. The patient is being seen by me at the request of Eliseo Lopez, SOFT CRAB SHEDDER, LINSEED CAKE TRIMMER for my opinion and advice regarding perianal drainage. She was seen in the office in May but wanted to come back just that she has some degrees of anxiety about the planned procedure and just to rediscuss the findings the planned procedure and the expected postoperative course. PAST MEDICAL HISTORY PAST MEDICAL HISTORY Diagnosis Date Anxiety Atopic dermatitis Depression Generalized anxiety disorder with panic attacks Hemorrhoids Hidradenitis suppurativa History of malignant neoplasm of cervix Dr. Alonso supply chain logistics manager Itching Low back pain Morbid obesity (HCC) BMI 44 Narcotic drug use Paresthesia Paroxysmal supraventricular tachycardia (HCC) Episodes typically every 3 mos; face in cold water Supraventricular tachycardia (HCC) Tobacco dependence syndrome PAST SURGICAL HISTORY PAST SURGICAL HISTORY Procedure Laterality Date SECTION HX x2 CONIZATION OF CERVIX, LEEP x2; 2009; 11/2011; Dr. Alonso TUBAL LIGATION HX 2012 CURRENT MEDICATIONS Current Outpatient Medications Medication Sig ALPRAZolam (XANAX) 0.5 mg tablet Take 0.5 mg by mouth three times daily as needed. ARIPiprazole (ABILIFY) 5 mg tablet Take 5 mg by mouth once daily. EPINEPHrine (EPIPEN) 0.3 mg/0.3 mL auto-injector Inject 0.3 mL intramuscularly as directed. atenolol (TENORMIN) 50 mg tablet Take 1 tablet by mouth as needed. sertraline (ZOLOFT) 100 mg tablet Take 1.5 tablets by mouth once daily. No current facility-administered medications for this visit. ALLERGIES: Bee Sting, Wasps, Doxycycline, Latex, and Penicillins PERSONAL HISTORY: SOCIAL HISTORY Social History Tobacco Use Smoking status: Former Smoker Types: Cigarettes Quit date: 07/18/2016 Years since quittin.9 Smokeless tobacco: Never Used Tobacco comment: Quit 07/2016 Vaping Use Vaping Use: current everyday user Substance Use Topics Alcohol use: Yes Comment: occasionally Drug use: No FAMILY HISTORY: FAMILY HISTORY FAMILY HISTORY Problem Relation Age of Onset Breast Cancer Maternal Grandmother Ovarian cancer Maternal Grandmother other (Heart Disease) Maternal Grandmother REVIEW OF SYMPTOMS: The review of systems data was entered by the nurse and reviewed by me There are no exam notes on file for this visit. PHYSICAL EXAMINATION: General: The patient is 35 year old female, well nourished, well hydrated in no acute distress. The patient is oriented to time, place, and person. VITALS: Blood pressure 130/92, pulse 75, temperature 36.8 C (98.2 F), height 172.7 cm (5' 8 ), weight (!) 142.1 kg (313 lb 3.2 oz), last menstrual period 09/07/2016, SpO2 97 %. HEENT: Normal cephalic, ataumatic, pupils are equally round, sclera are anicteric, mucous membranes are moist, oropharynx is clear. Neck has no masses, asymmetry or lymphadenopathy. Thyroid is unremarkable. Respiratory: Clear to auscultation and percussion. Normal respiratory excursion and pattern. Cardiac: Examination is regular rate and rhythm. Abdominal exam: Soft, nontender, with no palpable masses. No hepatosplenomegaly. No palpable hernias. Rectal exam: Posterior midline-an external sinus consistent with a posterior midline anal fistula along with a chronically inflamed tag just proximal to the sinus. Digital rectal exam reveals no hemorrhoids or other abnormalities there is what it feels to be a tract in the posterior midline consistent with fistula. She has no active perianal hidradenitis. Extremities: no clubbing, cyanosis or edema. No adenopathy. Other: LABORATORY VALUES: As Noted RADIOLOGIC STUDIES: As Noted Assessment IMPRESSION: Likely perianal fistula PLAN: My plan is to perform an examination under anesthesia and planned fistulotomy with possible seton placement. The planned surgical procedure was discussed extensively with the patient. The risks, benefits and anticipated outcomes of the procedure, the risks and benefits of the alternatives to the procedure, and the roles and tasks of the personnel to be involved, were discussed with the patient. My staff has also explained the procedure in understandable terms and the patient was given the option to take printed material concerning the planned procedure. The patient had the opportunity to ask questions concerning the planned procedure. The patient freely consents to the planned procedure. The patient is somewhat concerned about anesthesia specifically general anesthesia given her morbid obesity and body habitus. I discussed with her is that she is otherwise healthy this should be at very low risk. Given the location of her fistula my plan would be to perform this in modified lithotomy and we could attempt perianal block with sedation based on comfort of her anesthesiologist. Anticipated Surgical Procedure/ CPT Code: Examination Under Anesthesia, Anal Fistula - [id number] Anticipated Anesthetic: Choice Patient weight: Blood pressure 130/92, pulse 75, temperature 36.8 C (98.2 F), height 172.7 cm (5' 8 ), weight (!) 142.1 kg (313 lb 3.2 oz), last menstrual period 09/07/2016, SpO2 97 %. BMI: Body mass index is 47.62 kg/m . 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 This note will be forwarded to AVERY Herman CNP. Return to Clinic: The patient is instructed to follow-up with me 1 week post operatively. Eliseo Morales MD documented in this encounter [facility] 05-30-2021 Miscellaneous Notes 07-15-2021 EUA Fistula documented in this encounter [facility] 02-06-2021 Evaluation + Plan note Future Scheduled TestsLipid Profile 02/06/21Lipid Profile 12/04/20Complete Metabolic Panel 02/06/21Complete Metabolic Panel 12/04/20US Pelvis Non-OB Complete 12/04/20MA Mammo Screening Bilateral w/ Sekou 12/04/20 [facility] Evaluation + Plan note Future Appointments Appointment Date:08/15/2021 01:40:00 PM Scheduled Provider:ELISEO LOPEZ APRN, CNP Location:[facility] Appointment Type:PC OV Follow Up Appointment Date:12/26/2021 02:00:00 PM Scheduled Provider:ELISEO LOPEZ APRN, CNP Location:[facility] Appointment Type:PC OV Future Scheduled TestsLipid Profile 02/06/21Lipid Profile 12/04/20Complete Metabolic Panel 02/06/21Complete Metabolic Panel 12/04/20MA Mammo Screening Bilateral w/ Sekou 12/04/20US Pelvis Non-OB Complete 12/04/20 [facility] Evaluation + Plan note Future Appointments Appointment Date:05/04/2024 01:00:00 PM Scheduled Provider:ARMAAN THORNTON Location:[facility] Appointment Type:CV OV Future Scheduled TestsThyroid Stimulating Hormone 03/06/23A1C Hemoglobin 07/15/22Complete Blood Count 06/05/22Complete Blood Count 07/15/22Complete Blood Count 02/03/23Lipid Profile 07/15/22Lipid Profile 02/03/23Microalbumin Level Urine 06/05/22Microalbumin Level Urine 07/15/22Complete Metabolic Panel 06/05/22Complete Metabolic Panel 07/15/22Complete Metabolic Panel 02/03/23XR Spine Lumbar W/Obliques 4 Views 02/03/23 [facility] Evaluation note Diagnosis Anal fistula- Primary [facility] [place] [facility] Diagnosis Anal fistula- Primary documented in this encounter [facility] note* Diagnosis YANELI (obstructive sleep apnea)- Primary Obstructive sleep apnea (adult) (pediatric) [facility] Narrative No data available for this section [facility] Hospital Discharge instructions No data available for this section [facility] Progress note No data available for this section [facility] Reason for visit Narrative* Auth/Cert Specialty Diagnoses / Procedures Referred By Ever t Referred To Contact Diagnoses Anal fistula Procedures TX ANAL FSTL TRANS/SUPRA/XTRASPHNCTRC INCL SETON ANRCT XM SURG REQ ANES GENERAL SPI/EDRL DX ANAL FISTULECTOMY EXTRASPHINCTERIC W/ SETON DRAIN EXAM UNDER ANESTHESIA RECTAL [facility] [address] [place] [address] Referral ID Status Reason Start Date Expiration Date Visits Re quested Visits Authorized [id number] 1 1 [facility] Advance Directives No Advanced Directives Records FoundDocuments on File Type Date Recorded Patient Bias Binding Cutter Expl anation Advance Directive(s) 07/15/2021 11:47 AM Advance Directive(s) 06/20/2021 8:31 AM Documents on File Type Date Recorded Patient Bias Binding Cutter Expl anation Advance Directive(s) 07/15/2021 11:47 AM Advance Directive(s) 06/20/2021 8:31 AM Medications Administered Section Inactive Administered Medications - up to 3 most recent administrations Medication Order MAR Action Action Date Dose Rate Site acetaminophen 650 mg tab(s) (TYLENOL) 650 mg, ORAL, PRE-OP ONCE, 1 dose, On Thu07/15/21 at 1230, Preprocedure Given 07/15/2021 12:24 PM EDT 650 mg fentaNYL 50 mcg/mL 50 mcg injection (SUBLIMAZE) 50 mcg, INTRAVENOUS, EVERY 5 MINUTES NEEDED, 6 doses, Starting on Thu07/15/21 at 1418, Until Thu07/16/21 at 0303, FIRST LINE THERAPY, Every 10 minutes. USE FOR MILD PAIN ONLY IF PATIENT IS UNABLE TO TOLERATE ORAL THERAPY, Recovery or Phase I (only) lactated ringers iv infusion 5-30 mL/hr, INTRAVENOUS, CONTINUOUS, Starting on Thu07/15/21 at 1230, Until Thu07/15/21 at 1415, Preprocedure New Bag/Syringe/Bottle 07/15/2021 12:30 PM EDT 30 mL/hr 30 mL/hr lactated ringers iv infusion 100 mL/hr, INTRAVENOUS, CONTINUOUS, Starting on Thu07/15/21 at 1430, Until Thu07/16/21 at 0303, Recovery or Phase I (only) ondansetron (PF) 4 mg injection (ZOFRAN) 4 mg, INTRAVENOUS, EVERY 6 HOURS NEEDED, Starting on Thu07/15/21 at 1418, Until Thu07/16/21 at 0303, Nausea/Vomiting - First Line - Parenteral, EVERY 6 HOURS NEEDED Give IV push over 2 minutes. Use when patient unable to take medications by mouth., Recovery or Phase I (only) ondansetron orally disintegrating 4 mg tab(s) (ZOFRAN ODT) 4 mg, ORAL, EVERY 6 HOURS NEEDED, Starting on Thu07/15/21 at 1418, Until Thu07/16/21 at 0303, Nausea/Vomiting - First Line - Enteral, EVERY 6 HOURS NEEDED Use when patient able to take medications by mouth. Place tablet on tongue and allow to dissolve; do not chew. Open packaging using dry hands; do not push tablet through packaging., Recovery or Phase I (only) oxyCODONE IR 5 mg tab(s) (ROXICODONE) 5 mg, ORAL, NEEDED, 1 dose, Starting on Thu07/15/21 at 1418, Until Thu07/16/21 at 0303, Moderate Pain (4-6) - Enteral, Recovery or Phase I (only) promethazine 12.5 mg tab(s) (PHENERGAN) 12.5 mg, ORAL, PRE-OP ONCE, 1 dose, On Thu07/15/21 at 1230, Preprocedure Given 07/15/2021 12:25 PM EDT 12.5 mg scopolamine 1 mg over 3 days 1 Patch (TRANSDERM-SCOP) 1 Patch, TRANSDERMAL, Administer over 24 Hours, ONCE, 1 dose, On Thu07/15/21 at 1230, Allow 4 hours to achieve onset. Apply patch behind ear. Each time a new patch is needed it should be placed behind the alternate ear from the previous patch. Remove old patch. Each 1.5 mg patch delivers 1 mg of scopolamine over 3 days., Preprocedure Given 07/15/2021 12:25 PM EDT 1 Patch Other Summary Purpose Family History No Family History Records FoundNo Family History Records Found No data available for this section No data available for this section No Family History Records Found Additional Source Comments Source Comments (unrecognize d section and content) In the event this informatio n is protected by the Federal Confidentiality of Alcohol and Drug Abuse Patient Records regulations: The Federal rules restrict any use of the information to criminally investigate or prosecute any alcohol or drug abuse patient.[facility] the event this information is protected by the Federal Confidentiality of Alcohol and Drug Abuse Patient Records regulations: The Federal rules restrict any use of the information to criminally investigate or prosecute any alcohol or drug abuse patient.[facility] the event this information is protected by the Federal Confidentiality of Alcohol and Drug Abuse Patient Records regulations: The Federal rules restrict any use of the information to criminally investigate or prosecute any alcohol or drug abuse patient.[facility] the event this information is protected by the Federal Confidentiality of Alcohol and Drug Abuse Patient Records regulations: The Federal rules restrict any use of the information to criminally investigate or prosecute any alcohol or drug abuse patient.[facility] Reason for Visit (unrecogniz ed section and content) Reason Comments 07-15-2021 EUA Fistula Reason Comments Follow Up fistula Reason Comments New Patient Care Teams (unrecognized sec tion and content) Gear And Spline Grinder Relationship Specialty Start Date End Date Eliseo Lopez, LINSEED CAKE TRIMMER [address], [place] [id number] PCP - General Family Practice 05/14/21 Gear And Spline Grinder Relationship Specialty Start Date End Date Eliseo Lopez, LINSEED CAKE TRIMMER [address] [place] [address] PCP - General Family Practice 05/14/21 Gear And Spline Grinder Relationship Specialty Start Date End Date Eliseo Lopez, LINSEED CAKE TRIMMER [address] [place] [id number] PCP - General Family Practice 05/14/21 Gear And Spline Grinder Relationship Specialty Start Date End Date Eliseo Lopez, LINSEED CAKE TRIMMER [address] [place] [id number] PCP - General Family Medicine 05/14/21 Scheduled Active and Recently Administ ered Medications (unrecognized section and content) Medication Order 07/13/2021 07/14/2021 07/15/2021 acetaminophen 650 mg tab(s) (TYLENOL) (COMPLETED) 650 mg, ORAL, PRE-OP ONCE, 1 dose, On Thu07/15/21 at 1230, Preprocedure 1224 (Given - Provid er: Helen Godwin RN) clindamycin iv piggyback 900 mg in D5W 50 mL (CLEOCIN) (COMPLETED) 900 mg, INTRAVENOUS, at 100 mL/hr, Administer over 30 Minutes, PRE-OP ONCE, 1 dose, On Thu07/15/21 at 1230, General Cases - Penicillin Allergy PRE-OP ANTIBIOTIC ADMINISTER ONLY IN SURGICAL AREA - DO NOT ADMINSTER ON THE FLOOR, Please document the antimicrobial indication: Prophylaxis, Preprocedure 1225 (Sent with Rebecca ent - Provider: Helen Godwin RN)1334 (Given - Provider: Milla Villarreal APRN.CRNA)1346 (Canceled Entry - Provider: Milla Villarreal APRN.CRNA) ibuprofen 600 mg tab(s) (MOTRIN) 600 mg, ORAL, EVERY 6 HOURS, First dose on Thu07/15/21 at 1430, Until Discontinued, ADMINISTER WITH FOOD 1430 (Due)1800 (Due) promethazine 12.5 mg tab(s) (PHENERGAN) (COMPLETED) 12.5 mg, ORAL, PRE-OP ONCE, 1 dose, On Thu07/15/21 at 1230, Preprocedure 1225 (Given - Provid er: Helen Godwin RN) scopolamine 1 mg over 3 days 1 Patch (TRANSDERM-SCOP) 1 Patch, TRANSDERMAL, Administer over 24 Hours, ONCE, 1 dose, On Thu07/15/21 at 1230, Allow 4 hours to achieve onset. Apply patch behind ear. Each time a new patch is needed it should be placed behind the alternate ear from the previous patch. Remove old patch. Each 1.5 mg patch delivers 1 mg of scopolamine over 3 days., Preprocedure 1225 (Given - Provid er: Helen Godwin RN - Comment: patch placed behind left ear) Continuous Medication Order 07/13/2021 07/14/2021 07/15/2021 lactated ringers iv infusion (CANCELED) 5-30 mL/hr, INTRAVENOUS, CONTINUOUS, Starting on Thu07/15/21 at 1230, Until Thu07/15/21 at 1415, Preprocedure 1230 (New Bag/Syring e/Bottle - Provider: Gretchen De Oliveira RN)1415 (Due: Infusion Complete) lactated ringers iv infusion 100 mL/hr, INTRAVENOUS, CONTINUOUS, Starting on Thu07/15/21 at 1430, Until Tu07/16/21 at 0303, Recovery or Phase I (only) 1430 (Due) lactated ringers iv infusion 30 mL/hr, INTRAVENOUS, CONTINUOUS, Starting on Thu07/15/21 at 1430, Until Tu07/16/21 at 0303 1430 (Due) PRN Medication Order 07/13/2021 07/14/2021 07/15/2021 bupivacaine (PF) 30 mL, lidocaine (PF) 10 mg/mL (1 %) 30 mL (CANCELED) X (OR/PROCEDURE) PRN, Starting on Thu07/15/21 at 1355, Until Thu07/15/21 at 1415, Intraprocedure 1355 (Given - Provid er: Eliseo Morales MD - Comment: Rectum) dibucaine topical ointment 1% (NUPERCAINAL) (CANCELED) X (OR/PROCEDURE) PRN, Starting on Thu07/15/21 at 1402, Until Thu07/15/21 at 1415, Intraprocedure 1402 (Given - Provid er: Eliseo Morales MD - Comment: Rectum) fentaNYL 50 mcg/mL 50 mcg injection (SUBLIMAZE) 50 mcg, INTRAVENOUS, EVERY 5 MINUTES NEEDED, 6 doses, Starting on Thu07/15/21 at 1418, Until Thu07/16/21 at 0303, FIRST LINE THERAPY, Every 10 minutes. USE FOR MILD PAIN ONLY IF PATIENT IS UNABLE TO TOLERATE ORAL THERAPY, Recovery or Phase I (only) ondansetron (PF) 4 mg injection (ZOFRAN)(Linked Group 1) 4 mg, INTRAVENOUS, EVERY 6 HOURS NEEDED, Starting on Thu07/15/21 at 1418, Until Thu07/16/21 at 0303, Nausea/Vomiting - First Line - Parenteral, EVERY 6 HOURS NEEDED Give IV push over 2 minutes. Use when patient unable to take medications by mouth., Recovery or Phase I (only) ondansetron orally disintegrating 4 mg tab(s) (ZOFRAN ODT)(Linked Group 1) 4 mg, ORAL, EVERY 6 HOURS NEEDED, Starting on Thu07/15/21 at 1418, Until Thu07/16/21 at 0303, Nausea/Vomiting - First Line - Enteral, EVERY 6 HOURS NEEDED Use when patient able to take medications by mouth. Place tablet on tongue and allow to dissolve; do not chew. Open packaging using dry hands; do not push tablet through packaging., Recovery or Phase I (only) oxyCODONE IR 5 mg tab(s) (ROXICODONE) 5 mg, ORAL, NEEDED, 1 dose, Starting on Thu07/15/21 at 1418, Until Thu07/16/21 at 0303, Moderate Pain (4-6) - Enteral, Recovery or Phase I (only) oxyCODONE-acetaminophen 5-325 mg 1-2 tablet (PERCOCET) 1-2 tablet, ORAL, EVERY 6 HOURS NEEDED, Starting on Thu07/15/21 at 1418, Until Thu07/16/21 at 0303, Moderate Pain (4-6) - Enteral Linked Groups Order Group 1: ondansetron orally disintegrating 4 mg tab(s) (ZOFRAN ODT)Jump to med 4 mg, ORAL, EVERY 6 HOURS NEEDED, Starting on Thu07/15/21 at 1418, Until Thu07/16/21 at 0303, Nausea/Vomiting - First Line - Enteral
EVERY 6 HOURS NEEDED Use when patient able to take medications by mouth. Place tablet on tongue and allow to dissolve; do not chew. Open packaging using dry hands; do not push tablet through packaging.
Recovery or Phase I (only) Or ondansetron (PF) 4 mg injection (ZOFRAN)Jump to med 4 mg, INTRAVENOUS, EVERY 6 HOURS NEEDED, Starting on Thu07/15/21 at 1418, Until Thu07/16/21 at 0303, Nausea/Vomiting - First Line - Parenteral
EVERY 6 HOURS NEEDED Give IV push over 2 minutes. Use when patient unable to take medications by mouth.
Recovery or Phase I (only) INFORMATION SOURCE (unrecogn ized section and content) DATE CREATED AUTHOR 07/21/2021 [facility] DATE CREATED AUTHOR AUTHOR'S ORGANIZ ATION 05/08/2023 [facility] (ID) DATE CREATED AUTHOR AUTHOR'S ORGANIZ ATION 09/06/2023 [facility] FOR RECORDS PERTAINING TO PATIENTS WHO ARE OR HAVE BEEN ENROLLED IN A CHEMICAL DEPENDENCY/SUBSTANCEABUSE PROGRAM, SOME INFORMATION MAY BE OMITTED. This clinical summary was aggregated from multiple sources. Caution should be exercised in using it in the provision of clinical care. This summary normalizes information from multiple sources, and as a consequence, information in this document may materially change the coding, format and clinical context of patient data. In addition, data may be omitted in some cases. CLINICAL DECISIONS SHOULD BE BASED ON THE PRIMARY CLINICAL RECORDS. [employer] [facility]. provides no warranty or guarantee of the accuracy or completeness of information in this document.
== END | disposition home or self-care (01) ==
LOC: SL 19:48
PROVIDERS: PCP Family Medicine; Visit Provider Nurse Practitioner Acute Care
DX: G47.33 Obstructive sleep apnea (adult) (pediatric) (principal)
CPT/HCPCS: 95810

== ENCOUNTER → 2024-02-25 | Outpatient (CLI) | payer MEDICAID, SELFPAY ==
--- NOTE | 2024-02-25 11:15 | RAD_ITS ---
STUDY: X-RAY CHEST REASON FOR EXAM: Female, 38 years old. ACUTE RESPIRATORY INFECTION TECHNIQUE: PA and lateral views of the chest. COMPARISON: None. FINDINGS: The lungs are clear and expanded. There is no demonstrated pleural abnormality. Normal size heart. Normal mediastinum and fredo. Normal visualized pulmonary arteries. Normal visualized aortic arch and descending thoracic aorta. There are diffuse degenerative changes of the visualized thoracic spine. Normal visualized ribs, clavicles, and shoulders. There is no demonstrated abnormality of the visualized soft tissue structures of the upper abdomen. RAD/Chest PA and Lateral IMPRESSION: No acute abnormality is seen. Electronically Signed: Eduardo Segundo MD at 14:54 EST ,
== END | disposition home or self-care (01) ==
PROVIDERS: PCP Family Medicine
DX: J06.9 Acute upper respiratory infection, unspecified (principal)
CPT/HCPCS: 71046

== ENCOUNTER → 2024-04-11 | Outpatient (CLI) | payer MEDICAID, SELFPAY ==
--- NOTE | 2024-04-11 10:08 | MRI_ITS ---
EXAM: MR LEFT LOWER EXTREMITY WITHOUT INTRAVENOUS CONTRAST, ANKLE CLINICAL INDICATION: LT ANKLE PLANTAR FASCIAL FIBROMATOSIS TECHNIQUE: Multiplanar and multisequence MR images of the left ankle without intravenous contrast. COMPARISON: None FINDINGS: LIGAMENTS: ANTERIOR TALOFIBULAR: Thickening of the anterior talofibular ligament from a previous injury. POSTERIOR TALOFIBULAR: Unremarkable. Intact. ANTERIOR TIBIOFIBULAR: Unremarkable. Intact. POSTERIOR TIBIOFIBULAR: Unremarkable. Intact. CALCANEOFIBULAR: Unremarkable. Intact. DELTOID: Unremarkable. Intact. SPRING: Unremarkable. Intact. LISFRANC: Unremarkable. Intact. TENDONS: ACHILLES: Unremarkable. Intact. FLEXOR: Unremarkable. Intact. EXTENSOR: Unremarkable. Intact. PERONEAL: Longitudinal split tear of the peroneus brevis beginning at the retroareolar level and reconstituting shortly after the fibular tip. Associated peroneal tenosynovitis. TIBIALIS ANTERIOR: Unremarkable. Intact. TIBIALIS POSTERIOR: Tiny amount of tenosynovial fluid about the posterior tibial tendon which is intact. MUSCLES: Unremarkable. Normal bulk and signal. FLUID: Small retrocalcaneal bursal fluid. Moderate posterior subtalar joint effusion. Prominent retrocalcaneal bursal fluid. Moderate posterior subtalar joint effusion. No tibiotalar joint effusion. SINUS TARSI: Unremarkable. Normal fat in the sinus tarsi. TARSAL TUNNEL: Unremarkable. PLANTAR FASCIA: Thickening of the central cord of plantar aponeurosis with adjacent fluid signal is present in compatible with active plantar fasciitis. CARTILAGE: Unremarkable. No osteochondral lesion. Articular cartilage intact. BONES/JOINTS: Ankle mortise is intact. Talar dome intact. No fracture or marrow edema. OTHER SOFT TISSUES: Unremarkable. MRI/Lower Ext Joint Only (Routine) IMPRESSION: 1. Plantar fasciitis. 2. Longitudinal split tear of the peroneus brevis beginning at the retroareolar level and reconstituting shortly after the fibular tip. Associated peroneal tenosynovitis. 3. Retrocalcaneal bursitis. 4. Moderate posterior subtalar joint effusion. Electronically Signed: Holden Ram MD at 22:28 EST ,
== END | disposition home or self-care (01) ==
LOC: MRI 16:07
PROVIDERS: PCP Family Medicine; Referring Provider Podiatrist; Visit Provider Podiatrist
DX: M72.2 Plantar fascial fibromatosis (principal)
CPT/HCPCS: 73721

== ENCOUNTER → 2024-05-17 | Outpatient (CLI) | payer MEDICAID, SELFPAY ==
[2024-05-17 17:51] LABS: Absolute Lymphocyte Count 2.31 X10^3/uL (0.83-4.51); Absolute Neutrophil Count 6.8 X10^3/uL (2.0-7.7); Basophil# 0.09 X10^3/uL; Basophil% 0.8 % (0-1); Eosinophil# 0.35 X10^3/uL; Eosinophils% 3.3 % (0-5); Hematocrit 39.9 % (37-47); Lymphocyte # 2.31 X10^3/ul (0.83-4.51); Lymphocyte % 21.5 % (19-41); Mean Corp Hgb Conc 32.6 g/dL (32-36); Mean Corpuscular Hgb 31.8 pg (27.0-32.0); Mean Corpuscular Volume 97.6 fL (81-99); Mean Platelet Vol. 11.7 fl (6.2-12.0); Monocyte# 1.17 X10^3/uL; Monocyte% 10.9 % (0-10); NRBC Flagged by Analyzer 0 % (0-5); Neutrophil % 63.1 % (47-70); Platelet Count 244 K/mm3 (150-450); RBC Distribution Width CV 12.4 % (11.6-14.6); RBC Distribution Width SD 44.6 fl (35.1-43.9); Red Blood Count 4.09 M/mm3 (4.2-5.4); White Blood Count 10.8 K/mm3 (4.4-11.0)
[2024-05-17 18:04] LABS: Vitamin D,25 Hydroxy 37.1 ng/mL
[2024-05-17 18:11] LABS: Hemoglobin A1c 4.9 % (3.8-5.6)
[2024-05-17 18:17] LABS: ALB/GLOB Ratio 0.7 RATIO (0.9-2.4); AST(SGOT) 15 U/L (15-37); Alanine Aminotransfer ALT/SGPT 24 U/L (13-56); Albumin, Serum 3.2 g/dL (3.2-5.0); Alkaline Phosphatase 50 U/L (45-117); Anion Gap 8 (5-15); BUN 8 mg/dL (7-18); BUN/Creat Ratio 10.2 RATIO (10-20); Calcium,Total 8.7 mg/dL (8.5-10.1); Chloride 104 mmol/L (98-107); Cholesterol 229 mg/dL (200); Creatinine, Serum 0.78 mg/dL (0.55-1.02); EST Glomerular Filtration Rate 87 mL/min (>60); Est Glom Filt Rate - Afr Amer 106 mL/min (>60); Globulin 4.4 g/dL (2.2-4.2); Glucose 84 mg/dL (74-106); High Density Lipoprotein 89 mg/dL; Protein, Total 7.6 g/dL (6.4-8.2); Sodium Level 138 mmol/L (136-145); Triglycerides 98 mg/dL; Very Low Density Lipoprotein 20 mg/dL (5-40)
== END | disposition home or self-care (01) ==
LOC: MFPLAB 15:30
PROVIDERS: PCP Family Medicine; Referring Provider Family Medicine; Visit Provider Family Medicine
DX: I10 Essential (primary) hypertension (principal); Z13.1 Encounter for screening for diabetes mellitus; R79.89 Other specified abnormal findings of blood chemistry
CPT/HCPCS: 36415; 80053; 80061; 82306; 83036; 84443; 85025

== ENCOUNTER 2024-06-10 07:35 | Day surgery (SDC) | payer MEDICAID, SELFPAY ==
--- NOTE | 2024-05-27 23:56 | PAT.ANESEVAL ---
Pre-Assessment Diagnosis/Proposed Procedure Planned Operative Procedure(s): (L) Endoscopic Plantar Fasciotomy of the left foot with peroneal brevis tendon repair. Anesthesia History Anesthesia History - gutter mouth cutter: Anesthesia History - gutter mouth cutter Hx Hospitalization No 05/27/24 10:44 Any Problems With Anesthesia No 05/27/24 10:44 Cholinesterase deficiency No 05/27/24 10:44 You/Your Family Experience No 05/27/24 10:44 fever (hyperthermia) with Relationship Recent Exposure to Contagious Disease Does patient have nerve No 05/27/24 10:44 stimulator Patient instructed to have device shut off --Does patient have Pacemaker or ICD? When Was Last Pacemaker Check QUESTION #4 FULL TEXT: You/Your Family Experience fever (hyperthermia) with Anesthesia Last Oral Intake Last Oral intake: Last Oral Intake NPO since Meds taken in AM with sips of water? Meds patient instructed to take am of surgery PONV PONV - gutter mouth cutter: PONV - gutter mouth cutter Female Yes 05/27/24 10:44 HX of Motion Sickness Yes 05/27/24 10:44 HX of N/V After Surgery No 05/27/24 10:44 Non-Smoker No 05/27/24 10:44 Duration of Surgery greater Yes 05/27/24 10:44 than 60 minutes Number of Risk Factors 3 05/27/24 10:44 PONV Score Moderate Risk 05/27/24 10:44 Height & Weight Height & Weight: Anesthesia: Height & Weight Height 5 ft 9 in 03/18/24 07:06 Respiratory Assessment Respiratory Assessment - gutter mouth cutter: Respiratory Tract Infection Hx - gutter mouth cutter Hx Respiratory Tract Infection Yes: COVID (+) 05/25/2024 05/27/24 10:44 STOP Sleep Apnea STOP Sleep Apnea - gutter mouth cutter: STOP Sleep Apnea - gutter mouth cutter Hx Hypertension Yes: per pt, controlled on 05/27/24 10:44 meds Hx Sleep Apnea Yes 05/27/24 10:44 CPAP Yes 05/27/24 10:44 BIPAP No 05/27/24 10:44 Do you snore loudly (louder than talking or can be heard Do you often feel tired/ fatigued/ sleepy during daytime? Has anyone observed you stop breathing during sleep? STOP Results Positive 05/27/24 10:44 QUESTION #5 FULL TEXT : Do you snore loudly (louder than talking or can be heard through closed doors)? 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 Specify any problems Hx of Preganancy in last 3 No 05/27/24 10:44 Months Nurse Filling Out Transfusion MGRIFFITH 05/27/24 10:44 & Questions: Date: 05/27/24 05/27/24 10:44 Time: 10:47 05/27/24 10:44 Patient unable to answer at this time (ie. confused, unrespo /Reproduction History /Reproductive History - gutter mouth cutter: /Reproductive Hx- gutter mouth cutter Hx Now No 05/27/24 10:44 Gestational Age (in weeks): EDC: Hx Hx Para Hx Section SAB No 05/27/24 10:44 PFSH Medical History Wears contact lenses Wears glasses Marijuana use Low iron Smoker Sleep apnea CPAP (continuous positive airway pressure) dependence History of edema Cardiology follow-up encounter History of irregular heartbeat History of CHF (congestive heart failure) Anxiety Depression, unspecified Vitamin D deficiency Polycystic disease, ovaries Hormone deficiency Hypertension Emotional problems Cervical cancer Breast lump Anemia Allergies Alcohol abuse Home Medications ?Medication ?Instructions ?Recorded ?Last Taken ?Type epinephrine 0.3 mg/0.3 mL 0.3 mg (0.3 mL) IM X1 #2 syringes 11/24/14 07/06/16 Rx injection, auto-injector cholecalciferol (vitamin D3) 1,250 1,250 mcg PO QWEEK 08/05/23 Unknown History mcg (50,000 unit) capsule progesterone micronized 100 mg 100 mg PO QHS 08/05/23 Unknown History capsule Held on 05/27/24. Instructions: pt undecided if she wants to continue it valsartan 160 mg tablet 160 mg PO QDAY 08/05/23 Unknown History buspirone 15 mg tablet 15 mg PO TID #90 tabs 12/30/23 Unknown Rx escitalopram oxalate 20 mg tablet 20 mg PO QDAY #90 tabs 01/13/24 Unknown Rx hydroxyzine HCl 25 mg tablet 25 mg PO TID PRN anxiety #60 tabs 01/13/24 Unknown Rx atenolol 25 mg tablet 50 mg PO QDAY Blood Pressure 01/20/24 Unknown History multivitamin 1 tab PO QAM 01/20/24 Unknown History brexpiprazole 1 mg tablet 1 mg PO DAILY #90 tabs 03/18/24 Unknown Rx bupropion HCl 300 mg 24 hr tablet, 300 mg PO QAM #30 tabs 03/18/24 Unknown Rx extended release Allergy/AdvReac Type Severity Reaction Status Date / Time amoxicillin Allergy Rash Verified 05/27/24 10:38 penicillin Allergy Rash Verified 05/27/24 10:38 venom-honey bee (bee venom Allergy Shortness Verified 05/27/24 10:38 (honey bee)) of breath Family History Other Alcoholism Anxiety Autoimmune disorder Heart disease Hypertension Ovarian cancer Surgical History (Updated 05/27/24 @ 10:44 by Fransisca Omalley) History of surgery Social History (Updated 05/17/24 @ 13:14 by Virginia Navarro) current occupational status: employed 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 1. Cardiomyopathy- Cardiac MRI showed ejection fraction normalized with no concerning scar tissue. Initial echocardiogram showed ejection fraction of 45%. Likely due to high alcohol intake versus COVID. Currently on atenolol and valsartan tolerating well. Will continue current treatment. 2. Hypertension?controlled. 3. Supraventricular tachycardia-patient is on atenolol. 4. Obstructive sleep apnea-patient is on CPAP and is compliant. 5. Preop cardiovascular exam-patient has a current cardiac risk index of 0. She may proceed with upcoming procedure at low cardiac risk. Recommendation Anesthesia Recommendation Anesthesia recommendation: OPTIMIZED for anesthesia
[2024-06-10] VITALS (9 sets, daily range): BP systolic 121–137; BP diastolic 76–95; PULSE 62–80; RESP 16–18; TEMP 36.4–37.3; O2SAT 94–100; BMI 49.4
[2024-06-10] MEDS: 0.9% Normal Saline (1000mL) 1,000 ML 15 ML IV (08:29)
--- NOTE | 2024-06-10 08:50 | PCM.PRE.AN2 ---
ASA Classification* ASA Classification ASA Classification: 3 Assessment & Plan Anesthesia* Anesthesia Assessment Anesthesia Assessment: Discussed sedation and/or anesthesia options, risks, benefits, and alternatives with patient/parents/legal guardian/POA. Questions invited. The patient/parents/legal guardian/POA seems to understand and agrees to proceed with anesthesia plan. Reviewed the physical assessment, medical history, allergy history and patient home medications list prior to surgery/procedure/anesthetic and documented any changes. Performed airway and anesthesia risk assessments. Anesthesia Type Anesthesia Type: General and Block (Patient is consented for pain block.) History Source History Obtained from:: Patient and Chart Anesthesia Focused Assessment* Temperature: 98.3 F Pulse Rate: 62 Blood Pressure: 128/80 Respiratory Rate: 16 Pulse Ox: 97 Oxygen Delivery Method: Room Air Airway Assessment Mouth opens: >3 cm Mallampati Score: I Teeth Condition: Caps/Crowns (Tooth #7 is a crown. It is tight) and Missing (Patient has several missing teeth. Rest are tight.) Neck Range of motion (ROM): Full ROM Focused Labs Anesthesia Preop lab: CBC WBC 10.8 K/mm3 (4.4-11.0) 05/17/24 15:05/17/24 RBC 4.09 M/mm3 (4.2-5.4) L 05/17/24:05/17/24 Hgb 13.0 g/dL (12.0-15.0) 05/17/24 15:05/17/24 Hct 39.9 % (37-47) 05/17/24 15:05/17/24 Plt Count 244 K/mm3 (150-450) 05/17/24:05/17/24 CHEMISTRY Potassium 4.0 mmol/L (3.5-5.1) 05/17/24 15:05/17/24 Sodium 138 mmol/L (136-145) 05/17/24:05/17/24 BUN 8 mg/dL (7-18) 05/17/24:05/17/24 Creatinine 0.78 mg/dL (0.55-1.02) 05/17/24:05/17/24 Glucose 84 mg/dL (74-106) 05/17/24:05/17/24 TSH 3.280 uIU/mL (0.358-3.740) 05/17/24 15:31 05/17/24 COAG PT 13.5 SECONDS (11.9-14.4) 02/16/13 09:45 02/16/13 HCG, Quant 619 mIU/mL (<9 non-preg) H 06/23/12 10:48 06/23/12 Urine Test Pending 06/10/24 08:05 06/10/24 Pre-Assessment Diagnosis/Proposed Procedure Planned Operative Procedure(s): (L) Endoscopic Plantar Fasciotomy of the left foot with peroneal brevis tendon repair. Anesthesia History Anesthesia History - director special education: Anesthesia History - director special education Hx Hospitalization No 05/27/24 10:44 Any Problems With Anesthesia No 05/27/24 10:44 Cholinesterase deficiency No 05/27/24 10:44 You/Your Family Experience No 05/27/24 10:44 fever (hyperthermia) with Relationship Recent Exposure to Contagious No 06/10/24 08:03 Disease Does patient have nerve No 05/27/24 10:44 stimulator Patient instructed to have device shut off --Does patient have Pacemaker No 06/10/24 08:03 or ICD? When Was Last Pacemaker Check QUESTION #4 FULL TEXT: You/Your Family Experience fever (hyperthermia) with Anesthesia Last Oral Intake Last Oral intake: Last Oral Intake NPO since 20:30 06/10/24 08:03 Meds taken in AM with sips of Yes 06/10/24 08:03 water? Meds patient instructed to take am of surgery Any additional information?: Yes Meds taken in AM with sips of water?: Yes PONV PONV - director special education: PONV - director special education Female Yes 05/27/24 10:44 HX of Motion Sickness Yes 05/27/24 10:44 HX of N/V After Surgery No 05/27/24 10:44 Non-Smoker No 05/27/24 10:44 Duration of Surgery greater Yes 05/27/24 10:44 than 60 minutes Number of Risk Factors 3 05/27/24 10:44 PONV Score Moderate Risk 05/27/24 10:44 Height & Weight Height & Weight: Anesthesia: Height & Weight Height 5 ft 8 in 06/10/24 08:03 Weight: 147.4 kg 06/10/24 08:03 Body Mass Index (BMI) 49.4 06/10/24 08:03 Respiratory Assessment Respiratory Assessment - director special education: Respiratory Tract Infection Hx - director special education Hx Respiratory Tract Infection Yes: COVID (+) 05/25/2024 05/27/24 10:44 Any additional information?: Yes Hx Respiratory Tract Infection: Yes (Patient has been recovered from upper respiratory illness for 2 weeks.) STOP Sleep Apnea STOP Sleep Apnea - director special education: STOP Sleep Apnea - director special education Hx Hypertension Yes: per pt, controlled on 05/27/24 10:44 meds Hx Sleep Apnea Yes 05/27/24 10:44 CPAP Yes 05/27/24 10:44 BIPAP No 05/27/24 10:44 Do you snore loudly (louder than talking or can be heard Do you often feel tired/ fatigued/ sleepy during daytime? Has anyone observed you stop breathing during sleep? STOP Results Positive 05/27/24 10:44 QUESTION #5 FULL TEXT : Do you snore loudly (louder than talking or can be heard through closed doors)? 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 Specify any problems Hx of Preganancy in last 3 No 05/27/24 10:44 Months Nurse Filling Out Transfusion MGRIFFITH 05/27/24 10:44 & Questions: Date: 05/27/24 05/27/24 10:44 Time: 10:47 05/27/24 10:44 Patient unable to answer at this time (ie. confused, unrespo /Reproduction History /Reproductive History - director special education: /Reproductive Hx- director special education Hx Now No 05/27/24 10:44 Gestational Age (in weeks): EDC: Hx Hx Para Hx Section SAB No 05/27/24 10:44 Active Medications Active Medications: Current Medications Generic Name Dose Route Start Last Admin Trade Name Freq PRN Reason Stop Dose Admin Clindamycin Phosphate 900 mg in 50 mls @ 75 mls/hr 06/10/24 09:00 Cleocin IV 06/10/24 09:39 PREOP ONE Sodium Chloride 1,000 mls @ 15 mls/hr 06/10/24 07:40 06/10/24 08:29 IV 06/15/24 20:59 15 mls/hr .Q48H GERRI Administration Protocol PFSH Medical History Wears contact lenses Wears glasses Marijuana use Low iron Smoker Sleep apnea CPAP (continuous positive airway pressure) dependence History of edema Cardiology follow-up encounter History of irregular heartbeat History of CHF (congestive heart failure) Anxiety Depression, unspecified Vitamin D deficiency Polycystic disease, ovaries Hormone deficiency Hypertension Emotional problems Cervical cancer Breast lump Anemia Allergies Alcohol abuse Home Medications ?Medication ?Instructions ?Recorded ?Last Taken ?Type epinephrine 0.3 mg/0.3 mL 0.3 mg (0.3 mL) IM X1 #2 syringes 11/24/14 07/06/16 Rx injection, auto-injector cholecalciferol (vitamin D3) 1,250 1,250 mcg PO QWEEK 08/05/23 Unknown History mcg (50,000 unit) capsule progesterone micronized 100 mg 100 mg PO QHS 08/05/23 Unknown History capsule Held on 05/27/24. Instructions: pt undecided if she wants to continue it valsartan 160 mg tablet 160 mg PO QDAY 08/05/23 06/10/24 History hydroxyzine HCl 25 mg tablet 25 mg PO TID PRN anxiety #60 tabs 01/13/24 Unknown Rx atenolol 25 mg tablet 50 mg PO QDAY Blood Pressure 01/20/24 06/10/24 History multivitamin 1 tab PO QAM 01/20/24 Unknown History brexpiprazole 1 mg tablet 1 mg PO DAILY #90 tabs 06/08/24 Unknown Rx bupropion HCl 300 mg 24 hr tablet, 300 mg PO QAM #90 tabs 06/08/24 Unknown Rx extended release buspirone 15 mg tablet 15 mg PO TID #270 tabs 06/08/24 Unknown Rx escitalopram oxalate 20 mg tablet 20 mg PO QDAY #90 tabs 06/08/24 Unknown Rx Allergy/AdvReac Type Severity Reaction Status Date / Time amoxicillin Allergy Rash Verified 06/10/24 08:02 penicillin Allergy Rash Verified 06/10/24 08:02 venom-honey bee (bee venom Allergy Shortness Verified 06/10/24 08:02 (honey bee)) of breath Family History Other Alcoholism Anxiety Autoimmune disorder Heart disease Hypertension Ovarian cancer Surgical History History of surgery Social History current occupational status: employed 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
[2024-06-10] MEDS: Clindamycin 900 MG/50 ML BAG 75 MG IV (09:20)
[2024-06-10] MEDS: Bupivacaine 0.5% PF 10 ML VIAL (09:50)
--- NOTE | 2024-06-10 10:51 | OP.PCM_ITS ---
Problems Associated Problem List Diagnoses (1) Plantar fascial fibromatosis: (2) Peroneal tendinitis, left leg: Operative Report (Standard) Operative Information Date of Procedure: 06/10/24 Pre-Operative Diagnosis: 1) Left foot plantar fasciitis 2) Left ankle peroneus brevis split tear Post-Operative Diagnosis: same Surgery/Procedure Performed: 1) endoscopic plantar fasciotomy, left foot 2) peroneus brevis split tear repair via read tubularization, left ankle drop hammer set up operator: Yes Director Security Management: [employer] Tasks completed by marketing operations assistant: Opening, Closing, Dissecting tissue and Hemostasis: Electrocautery Type of Anesthesia: MAC RN Documented Start/Stop Times: Operation Date: 06/10/24 09:00 Case Time Into Pre-Op 06/10/24 07:39 Anesthesia Start 06/10/24 09:20 Into Room 06/10/24 09:20 Out of Pre-Op 06/10/24 09:20 Procedure Start 06/10/24 09:44 Procedure End 06/10/24 10:41 Anesthesia End 06/10/24 10:50 Out of Room 06/10/24 10:50 Procedure Start Time: 09:42 Procedure Stop Time: 10:42 Select all DRAINS/GRAFTS/IMPLANTS that apply: None Special Medications: 10cc 0.5% marcaine plain Estimated Blood Loss: minimal Specimen collected: No Description of surgery: Patient brought back to the op room placed comfortably in supine position on operating table. Patient induced under MAC anesthesia. Well-padded left thigh tourniquet was applied. Left lower extremity was positioned and neck on external rotation. Left lower extremity was scrubbed prepped draped using typical aseptic fashion. Was cleared by anesthesia left lower extremity was elevated exsanguinated tourniquet was inflated to 300 mmHg. Directed attention to the left medial heel endoscopic left plantar fasciotomy was performed: The plantar medial calcaneal tubercle was palpated and incision was drawn where the plantar skin meets the dorsal skin along the medial aspect of the heel 1 cm distal to the medial calcaneal tubercle. Stab incision was made with a 15 blade and this was deepened down to level plantar fascia with hemostats. Care was taken to avoid any adjacent neurovascular structures. A stroke a spatula was then used to create a soft tissue plane just plantar to the plantar fascia and extended from medial to lateral along the plantar aspect of the plantar fascia a trocar and cannula were then inserted medial to lateral just plantar to the plantar fascia along this tissue plane and a percutaneous incision was made with a 15 blade to allow for complete excursion of the device. Next the site was cleared of any debris using a cotton tip applicators. A scope was inserted from lateral to medial and the central band of the plantar fascia was visualized and then cut using a hook blade from lateral to medial cutting the medial two thirds of the central band of plantar fascia. There is noted to be diffuse thickening of the plantar fascia with fascia gnosis noted. Upon adequate resection there is noted to be visualization of the underlying intrinsic musculature. All hardware was removed from the site. Incisional sites flushed with copious amounts of normal sterile saline. Incisional sites closed with combination over and over and horizontal mattress with 3-0 nylon. Procedure #2: Left peroneus brevis tendon repair the read tubularization for split tear: A curvilinear incision was drawn just along the posterior aspect of the tip of the lateral malleolus extending approximately 2 cm proximal to the distal tip of the lateral malleolus and 2 cm distal. This incision was made with a 15 blade through epidermis dermis into subcutaneous tissue there is noted to be a large crossing vein which was cauterized using Bovie and additional dissection was taken down to the level of the peroneal retinaculum. At this time [place] was used to penetrate into the peroneal sheaths and create a plane to allow for opening up of the peroneal tendons. Peroneal peroneus brevis and peroneus longus tendons were then identified and examined. There is noted to be a large split tear to the peroneus brevis as it traverses posterior to the tip of the lateral malleolus. This tendon was then repaired using a running interlocking 2-0 PDS to the peroneus brevis and brevis split tear. Good apposition and rotary tubularization noted to the peroneus brevis with improved movement posterior to the lateral malleolus with ankle and subtalar joint range of motion testing. Sites were flushed with copious amounts normal sterile saline. Peroneal retinaculum and deep fascial closure was performed with running 3-0 Vicryl. Subcutaneous closure performed with simple interrupted buried 3-0 Vicryl. Skin closure performed with 3-0 nylon horizontal mattress. Tourniquet was let down any bleeders identified cauterized. Tourniquet time was noted to be less than an hour. Foot was cleansed incisional sites were dressed with Betadine Adaptic 4 x 4's Ke rlix and a well-padded AO splint with the foot and ankle held in a rectus position relative to the leg. Patient was transported PACU vital signs stable and vascular status intact all digits for further monitoring prior to discharge. Patient tolerated procedure and anesthesia well apparent satisfactory condition. No complications Significant thickening of the plantar fascia upon endoscopic plantar fasciotomy with adequate release noted Significant peroneus brevis split tearing noted to the posterior lateral malleolus with good apposition upon repair and restored tubular nature of the peroneus brevis tendon upon read tubularization with good movement with range of motion testing No pathologic specimen Surgical Findings: As dictated above Complications Complications: No
[2024-06-10] MEDS: Ketorolac 30 MG/ML Syringe IV (11:30)
--- NOTE | 2024-06-10 12:46 | PCM.POST.ANE ---
Anesthesia: Postop Eval I Current Vital Signs Temperature: 97.8 F Pulse Rate: 78 Blood Pressure: 130/80 Respiratory Rate: 18 Pulse Ox: 94 Oxygen Delivery Method: Room Air Assessment Airway patent: Yes Spontaneous unlabored respirations: Yes nausea: No Vomiting: No Anesthesia Complication: No Fluid Hydration Crystalloid volume administer (ml): 800 Total IV fluid infused: 800 Progress Note Anesthesia document: Postop Eval 1 completed: Yes
--- NOTE | 2024-06-10 18:38 | POSTOPAN2_ITS ---
Anesthesia Postop Eval I Sum Postop Eval Completion status Anesthesia document: Postop Eval 1 completed: Yes Anesthesia Postop Eval I Summary Anesthesia Postop Eval I Summary: Anesthesia Postop Eval I: Assessment Summary Airway patent Yes 06/10/24 12:47 [email or web address] Spontaneous unlabored Yes 06/10/24 12:47 PEDIATRIC [email or web address] respirations Mental status nausea No 06/10/24 12:47 [email or web address] Vomiting No 06/10/24 12:47 [email or web address] Anesthesia Postop Eval I: Fluid Summary Crystalloid volume administer 800 06/10/24 12:47 [email or web address] (ml) Colloids volume administered ( ml) Blood Product volume administered (ml) Total IV fluid infused 800 06/10/24 12:47 [email or web address] Anesthesia Postop Eval I: Summary Notes Anesthesia Complication No 06/10/24 12:47 [email or web address] Anesthesia Complication Comment: Post-operative progress note Anesthesia: Postop Eval II Evaluation Mental status: Awake and Calm Pain Level: 2 nausea: No Vomiting: No Complications Anesthesia Complication: No
--- NOTE | 2024-06-10 18:38 | PCM.POSTANE2 ---
Anesthesia Postop Eval I Sum Postop Eval Completion status Anesthesia document: Postop Eval 1 completed: Yes Anesthesia Postop Eval I Summary Anesthesia Postop Eval I Summary: Anesthesia Postop Eval I: Assessment Summary Airway patent Yes 06/10/24 12:47 [email or web address] Spontaneous unlabored Yes 06/10/24 12:47 [email or web address] [email or web address] respirations Mental status nausea No 06/10/24 12:47 [email or web address] Vomiting No 06/10/24 12:47 [email or web address] Anesthesia Postop Eval I: Fluid Summary Crystalloid volume administer 800 06/10/24 12:47 [email or web address] (ml) Colloids volume administered ( ml) Blood Product volume administered (ml) Total IV fluid infused 800 06/10/24 12:47 [email or web address] [email or web address] Anesthesia Postop Eval I: Summary Notes Anesthesia Complication No 06/10/24 12:47 [email or web address] [email or web address] Anesthesia Complication Comment: Post-operative progress note Anesthesia: Postop Eval II Evaluation Mental status: Awake and Calm Pain Level: 2 nausea: No Vomiting: No Complications Anesthesia Complication: No
[2024-06-10 19:41] LABS: Internal QC Validated? YES +Cl - CLEAR BKGD; Pregnancy, Urine Negative Negative
== END 2024-06-10 12:47 | disposition home or self-care (01) ==
LOC: SDC 07:35 → AC 07:37
PROVIDERS: Anesthesiology; PCP Family Medicine; Referring Provider Podiatrist; Visit Provider Podiatrist
PROC: (CPT 29893; principal; 2024-06-10 08:45)
DX: M72.2 Plantar fascial fibromatosis (principal); M76.72 Peroneal tendinitis, left leg; I10 Essential (primary) hypertension; F32.A Depression, unspecified; F41.9 Anxiety disorder, unspecified; F17.290 Nicotine dependence, other tobacco product, uncomplicated; Z79.899 Other long term (current) drug therapy; Z86.16 Personal history of COVID-19
CPT/HCPCS: 29893; 28200; 64450; 81025; J2405

== ENCOUNTER 2024-07-12 10:58 | Outpatient (RCR) | payer MEDICAID, SELFPAY ==
--- NOTE | 2024-07-12 14:17 | HP.PTEVAL ---
Patient's Visit Information Visit Information Visit Information: JAIME DESAI is a 39 year old F referred to Physical Therapy by Dr. Bhaskar Bergman DPM with a diagnosis of S/P 06-10-24. He did a plantar fasciotomy and peroneal tenon repair. Date of Evaluation: 07/12/24 Physical Therapist: Elin Leal MPT Visit Plan Frequency: 2x /Week Duration: 2 Months Plan: 2X/ week for 8 weeks for L ankle AROM, stretching, strengthening, increasing WB status, gait training, balance with HEP Spoke with nurse and Dr said no restrictions but per her tolerance. HEP: ankle pumps, ankle INV/EV, seated ankle DF/PF and gastroc towel stretch Subjective Subjective: Pt had surgery on 06-10-24. He did a plantar fasciotomy and peroneal tendon repair. She just got the CAM boot off yesterday. She is supposed to wear it out in public but came in a shoe today. It is bothering her still all the time even in the boot. She has no feeling in her lucero to the lateral part of her calf. She has burning and tingling. Her incisions feel like they are tearing. Dr said to go to PT. She is 4.5 weeks post op. She has pain just sitting here or she will have pain with stepping on it. Her foot does not keep her up at night but it does make her cry sometimes. Dr wanted to do cortizone injections but they passed on that for now. Pain L foot pain: Pain Intensity (Out of 10): 5 Pain Intensity Range: 8 Objective Objective: L ankle AROM: 5 degrees DF, 67 degrees PF, 32 degrees INV, and 15 degrees EV R ankle AROM: DF 0, PF 60, INV 34 and EV 20 Pt has increase pain at the Achilles and lateral side of foot with towel gastroc stretch Gait: walks with decreased heel to toe pattern and decreased stance time on the R LE. Palpation: pt was tender along the peroneal tendon especially a the insertion. Balance/Special Test Scores Lower Extremity Functional Score: 23 Goals Goal 1:: I HEP Goal Time Frame: 6-8 Weeks Goal 2:: Be able to walk with a normal gait pattern and without pain Goal Time Frame: 6-8 Weeks Goal 3:: Increase R ankle AROM (at the time of the eval: L ankle AROM: 5 degrees DF, 67 degrees PF, 32 degrees INV, and 15 degrees EV R ankle AROM: DF 0, PF 60, INV 34 and EV 20). Goal Time Frame: 6-8 Weeks Goal 4:: Decrease overall pain by 50% (up to 8/10 at times now currently) Goal Time Frame: 6-8 Weeks Rehabilitation Potential Rehabilitation Potential: Good Anticipated Interventions Patient/Client Instruction: Educate patient on: Condition and Plan of Care For the Purpose of:: To decrease pain, To decrease swelling/inflammation, To increase ROM, To improve nutrient delivery to tissue, To improve muscle performance and motor function, To improve ability to perform ADL's, To increase tolerance to activity/condition/position, To improve performance and independence with ADL's, To decrease level of supervision to perform tasks, To improve ability of physical actions for home/community/work/leisure, To improve gait and locomotor functions, To improve health of tissue, To decrease soft tissue restriction, To increase flexibility/ROM, To improve balance and To improve safety with gait Therapeutic Exercise to Include: Strength training, Endurance training, Balance training, Flexibilty training, Gait and locomotor training, Passive ROM and Active ROM For the Purpose of:: To decrease pain, To decrease swelling/inflammation, To increase ROM, To improve nutrient delivery to tissue, To improve muscle performance and motor function, To improve ability to perform ADL's, To increase tolerance to activity/condition/position, To improve performance and independence with ADL's, To decrease level of supervision to perform tasks, To improve ability of physical actions for home/community/work/leisure, To improve gait and locomotor functions, To improve health of tissue, To decrease soft tissue restriction, To increase flexibility/ROM, To improve endurance, To improve balance and To improve safety with gait Functional Training to Include: Gait training For the Purpose of:: To improve gait and locomotor functions and To improve safety with gait Text: Thank you for the opportunity to evaluate your patient. For Medicare and Medicare HMO plans, please review the plan of care and approve it. It will need to be FAXED BACK to us at [phone] for Medicare purposes. For Medicare only, by signing this I certify the plan of care. Please let me know if there are questions or concerns regarding this plan of care. Physician Signature: Date:
--- NOTE | 2025-01-10 09:00 | HP.PT.NRP ---
Patient Information Patient Information: JAIME DESAI was seen in my office for initial evaluation on 07/12/24. The following Plan of Care was established for this patient: POC Established Initial Frequency: 2x /Week Initial Duration: 2 Months Anticipated Interventions Patient/Client Instruction: Educate patient on: Condition and Plan of Care For the Purpose of:: To decrease pain, To decrease swelling/inflammation, To increase ROM, To improve nutrient delivery to tissue, To improve muscle performance and motor function, To improve ability to perform ADL's, To increase tolerance to activity/condition/position, To improve performance and independence with ADL's, To decrease level of supervision to perform tasks, To improve ability of physical actions for home/community/work/leisure, To improve gait and locomotor functions, To improve health of tissue, To decrease soft tissue restriction, To increase flexibility/ROM, To improve balance and To improve safety with gait Therapeutic Exercise to Include: Strength training, Endurance training, Balance training, Flexibilty training, Gait and locomotor training, Passive ROM and Active ROM For the Purpose of:: To decrease pain, To decrease swelling/inflammation, To increase ROM, To improve nutrient delivery to tissue, To improve muscle performance and motor function, To improve ability to perform ADL's, To increase tolerance to activity/condition/position, To improve performance and independence with ADL's, To decrease level of supervision to perform tasks, To improve ability of physical actions for home/community/work/leisure, To improve gait and locomotor functions, To improve health of tissue, To decrease soft tissue restriction, To increase flexibility/ROM, To improve endurance, To improve balance and To improve safety with gait Functional Training to Include: Gait training For the Purpose of:: To improve gait and locomotor functions and To improve safety with gait Last Seen Last Seen: This patient was last seen in our office 07/12/24. Pertinent comments regarding their Physical therapy will appear below: DC PT At this point I will be discontinuing this patient from physical therapy. I would be happy to see this patient again in the future if found appropriate by the physician. Thank you! Elin Leal, MPT Balance/Gait/Functional tests Balance/Special Test Scores Lower Extremity Functional Score: 23
== END 2024-07-12 19:00 | disposition home or self-care (01) ==
LOC: PT 10:58
PROVIDERS: PCP Family Medicine; Referring Provider Podiatrist; Visit Provider Podiatrist
DX: M72.2 Plantar fascial fibromatosis (principal); M76.72 Peroneal tendinitis, left leg
CPT/HCPCS: 97161